=== PATIENT | female | born 1950 | race Caucasian/White ===

== ENCOUNTER 2022-04-23 10:41 | Observation (INO) ==
[2022-04-23] MEDS ORDERED: ASPIRIN CHEW 324 MG PO STA (11:23)
--- NOTE | 2022-04-23 11:27 | Emergency Department Note ---
Impression & Plan Chest pain, Chest pain, exertional ED Provider Note INFORMANT: Patient ED PROVIDER(S): Chano Harris DO CHIEF COMPLAINT: Chest pain PLAN: Disposition: admission Condition: Good Outpatient prescription management: none Referral: I spoke with the hospitalist, who will see the patient for admiss ion/observation and further evaluation and consultation. MEDICAL DECISION MAKING: This is a 71-year-old female who presents to the ED with a chief complaint is discomfort. The patient states that she went to her PCP this morning to have a preop visit for a total hip replacement that is scheduled for May. She saw Dr. Chacon in the office. The patient states that she told Dr. Chacon about what happened yesterday and was referred here for further evaluation. She states that she had some chest discomfort/tightness that started around 2:30 PM yesterday. She states that she was doing minimal activity at the time. It radiated to the jaw, neck and left arm. It lasted for about 45 minutes with some associated diaphoresis and nausea and belching. She thought that it might have been related to anxiety, which she has a history of but she states that she has never had a panic attack. She states that her bra was soaking wet. She did have associated shortness of breath as well. The patient states that when walking to the doctor's office this morning she again had some discomfort in her chest and shortness of breath. She overall states that she has not been feeling well since this event yesterday. History of hypertension, high cholesterol and COPD. Her vital signs are normal. Her physical exam was unremarkable. She is in no distress and denies having chest pain now. Lead EKG shows a normal sinus rhythm at a rate of 60, low voltage. She does have ST depressions in the lateral leads. Unsure if this is chronic or acute. CBC was unremarkable. Chest x-ray is negative for acute disease. BUN is 37 and creatinine is 1.22. No significant anemia or electrolyte disturbance. Lipase was negative. COVID test was negative. The patient was told the results. She was treated with aspirin p.o. here. Because of her symptoms and risk factors, she will be seen by the hospitalist for further evaluation and care. I did speak with him about her condition and test results Triage Nursing notes reviewed. Vital Signs: reviewed Prior /Outside records reviewed: none Differential diagnosis: The differential that was considered includes acute myocardial infarction, acute coronary syndrome, myocarditis, pericarditis, thoracic aortic dissection, pulmonary embolism, pneumonia, pneumothorax, pancreatitis, shingles Diagnostics, as interpreted by me: 12 lead ECG: Normal sinus rhythm at a rate of 60. Low voltage. ST depressions laterally. No PVCs. Cardiac Monitoring: [none] Medical decision rules: HEART SCORE: Moderate Imaging studies: No acute disease. No pneumothorax or pneumonia. Procedures: none. Critical care: none. HPI: See MDM above. PAST MEDICAL HISTORY: See Below PAST SURGICAL HISTORY: See Below SOCIAL HISTORY: See Below HOME MEDICATIONS: See Below ALLERGIES: See Below VITALS: See Below PHYSICAL EXAMINATION: CONSTITUTIONAL/VITAL SIGNS: Reviewed GENERAL: Non-toxic in appearance. INTEGUMENTARY: Warm, dry, and [place]. HEAD: Normocephalic. EYES: without scleral icterus. ENT/OROPHARYNX: clear and moist. RESPIRATORY: No increased work of breathing. Lungs clear. CARDIOVASCULAR: Regular rate. Regular rhythm. GI/ABDOMEN: Soft and nontender. . EXTREMITIES: Normal NEUROLOGICAL: Intact without focal deficits. PSYCHIATRIC: Normal affect. MUSCULOSKELETAL: Normal. TRIAGE NURSING DOCUMENTATION REVIEWED. Past Med/Surg History Medical History (Updated 04/23/22 @ 12:47 by Chano Harris DO) Anxiety and depression Asthma well controlled w/ montelukast , no inhalers Bipolar disorder COPD (chronic obstructive pulmonary disease) GERD (gastroesophageal reflux disease) Hyperlipidemia Hypertension Hypothyroidism OCD (obsessive compulsive disorder) Surgical History (Updated 04/21/22 @ 13:33 by Sara Velázquez) History of bilateral knee replacement History of esophagogastroduodenoscopy (EGD) History of open reduction and internal fixation (ORIF) procedure Right femur History of removal of retained hardware R/t femur ORIF History of right hip replacement Hx of colonoscopy Hx of hysterectomy Hx of tonsillectomy Nausea and vomiting after administration of anesthetic agent Family History Other Hx of cardiac disorder Social History Smoking Status: Never smoker Second Hand Exposure: No; Hx Alcohol Use: No Hx Substance Use: No Preferred Language: Yoruba Communication Ability: Effective Forensic Toxicologist Required: No Beliefs That Will Affect Care: None Current Living Situation: Spouse Feels Safe at Home: Yes Assistive Devices: Glasses Allergies Allergies Allergy/AdvReac Type Severity Reaction Status Date / Time codeine AdvReac Mild Vomiting Verified 04/15/22 10:06 Home Meds Home Medications Medication Instructions Recorded Confirmed acetaminophen 500 mg tablet 1,000 mg PO BID PRN Pain 04/15/22 04/15/22 ascorbic acid (vitamin C) 1,000 mg 1,000 mg PO BID 04/15/22 04/15/22 tablet,extended release (Vitamin C ER) atorvastatin 40 mg tablet (Lipitor) 40 mg PO PM 04/15/22 04/15/22 buspirone 15 mg tablet 30 mg PO QPM 04/15/22 04/15/22 buspirone 15 mg tablet 60 mg PO QAM 04/15/22 04/15/22 lamotrigine 200 mg tablet 200 mg PO BID 04/15/22 04/15/22 levothyroxine 50 mcg tablet 50 mcg PO QAM 04/15/22 04/15/22 lisinopril 10 mg tablet 10 mg PO QAM 04/15/22 04/15/22 montelukast 10 mg tablet 10 mg PO QAM 04/15/22 04/15/22 multivitamin 1 tab PO QAM 04/15/22 04/15/22 omeprazole 20 mg capsule,delayed 20 mg PO BID 04/15/22 04/15/22 release risperidone 3 mg tablet 3 mg PO HS 04/15/22 04/15/22 topiramate 100 mg tablet 300 mg PO HS 04/15/22 04/15/22 valacyclovir 500 mg tablet 500 mg PO BID 04/15/22 04/15/22 venlafaxine 150 mg 300 mg PO QAM 04/15/22 04/15/22 capsule,extended release 24 hr Results & Data (ED) Vital Signs Vital Signs - 24 hr 04/23/22 10:41 04/23/22 11:37 04/23/22 12:00 Temperature 36.6 C Temperature Source Temporal Artery Scan Pulse Rate 67 Pulse Rate [Apical] 69 60 Pulse Rhythm [Apical] Regular Regular Pulse Strength [Apical] Normal Respiratory Rate 20 17 18 Respiratory Effort / Characteristics Non-Labored Spontaneous Non-Labored Spontaneous Non-Labored Spontaneous Respiratory Depth Normal Normal Normal Respiratory Pattern Regular Blood Pressure 132/81 Blood Pressure [Left Arm] 124/63 132/72 Blood Pressure Mean 98 Blood Pressure Mean [Left Arm] 83 92 Pulse Oximetry 98 98 95 Oxygen Delivery Method Room Air Room Air Room Air Sepsis Recent Fever Within 48 Hours No Sepsis New/Unexplained Change in Mental Status No Sepsis Action Taken by Nursing No Action Required Laboratory Data 04/23/22 11:13 04/23/22 11:13 Lab Results 04/23/22 04/23/22 04/23/22 Range/Units 11:13 11:13 11:13 WBC 4.68 L (4.8-10.8) K/ul RBC 3.42 L (3.93-5.22) M/uL Hgb 11.2 L (12.0-16.0) g/dl Hct 35.0 (34.1-44.9) % MCV 102.3 H (80.0-100.0) fL MCH 32.7 (25.0-34.0) pg MCHC 32.0 (32.0-36.0) g/dL RDW Std Deviation 53.5 H (36.4-46.3) fL RDW Coeff of Diane 14.3 (11.5-14.5) % Plt Count 152 (130-400) K/uL MPV 10.6 (9.4-12.3) fL Immature Gran % (Auto) 0.4 % Neut % (Auto) 65.7 % Lymph % (Auto) 18.2 % Sanders % (Auto) 9.2 % Eos % (Auto) 5.6 % Baso % (Auto) 0.9 % Neut # (Auto) 3.08 (1.4-6.5) K/uL Lymph # (Auto) 0.85 L (1.2-3.4) K/uL Sanders # (Auto) 0.43 (0.24-0.82) K/uL Eos # (Auto) 0.26 (0-0.50) K/uL Baso # (Auto) 0.04 (0-0.2) K/uL Immature Gran # (Auto) 0.02 (0.00-0.02) K/uL PT 10.3 (9.0-12.0) Seconds INR 1.0 (0.9-1.1) APTT 24.8 (21.0-31.0) Seconds PTT Ratio 0.9 Sodium 140 (136-145) mmol/L Potassium 4.3 (3.5-5.1) mmol/L Chloride 111 H (98-107) mmol/L Carbon Dioxide 24 (21-32) mmol/L Anion Gap 5 (3-11) BUN 37 H (6-23) mg/dl Creatinine 1.22 H (0.6-1.2) mg/dl Est Cr Clr Drug Dosing 42.9 ml/min Est GFR ( Amer) 50.9 ml/min Est GFR (Non-Af Amer) 43.9 ml/min BUN/Creatinine Ratio 30.3 H (10-20) Glucose 80 (70-99(Fasting)) mg/dl Calcium 9.6 (8.5-10.1) mg/dl Total Bilirubin 0.3 (0.2-1.0) mg/dl AST 20 (13-39) U/L ALT 18 (7-52) U/L Alkaline Phosphatase 87 (34-104) U/L Troponin I High Sens 6.4 (0-14) pg/ml Total Protein 7.2 (6.0-8.3) gm/dl Albumin 4.3 (3.4-5.0) gm/dl Globulin 2.9 (2.5-4.0) gm/dl Albumin/Globulin Ratio 1.5 (0.9-2) Lipase 44 (11-82) U/L SARS-CoV-2, RNA, NAAT (NEGATIVE) 04/23/22 Range/Units 11:15 WBC (4.8-10.8) K/ul RBC (3.93-5.22) M/uL Hgb (12.0-16.0) g/dl Hct (34.1-44.9) % MCV (80.0-100.0) fL MCH (25.0-34.0) pg MCHC (32.0-36.0) g/dL RDW Std Deviation (36.4-46.3) fL RDW Coeff of Diane (11.5-14.5) % Plt Count (130-400) K/uL MPV (9.4-12.3) fL Immature Gran % (Auto) % Neut % (Auto) % Lymph % (Auto) % Sanders % (Auto) % Eos % (Auto) % Baso % (Auto) % Neut # (Auto) (1.4-6.5) K/uL Lymph # (Auto) (1.2-3.4) K/uL Sanders # (Auto) (0.24-0.82) K/uL Eos # (Auto) (0-0.50) K/uL Baso # (Auto) (0-0.2) K/uL Immature Gran # (Auto) (0.00-0.02) K/uL PT (9.0-12.0) Seconds INR (0.9-1.1) APTT (21.0-31.0) Seconds PTT Ratio Sodium (136-145) mmol/L Potassium (3.5-5.1) mmol/L Chloride (98-107) mmol/L Carbon Dioxide (21-32) mmol/L Anion Gap (3-11) BUN (6-23) mg/dl Creatinine (0.6-1.2) mg/dl Est Cr Clr Drug Dosing ml/min Est GFR ( Amer) ml/min Est GFR (Non-Af Amer) ml/min BUN/Creatinine Ratio (10-20) Glucose (70-99(Fasting)) mg/dl Calcium (8.5-10.1) mg/dl Total Bilirubin (0.2-1.0) mg/dl AST (13-39) U/L ALT (7-52) U/L Alkaline Phosphatase (34-104) U/L Troponin I High Sens (0-14) pg/ml Total Protein (6.0-8.3) gm/dl Albumin (3.4-5.0) gm/dl Globulin (2.5-4.0) gm/dl Albumin/Globulin Ratio (0.9-2) Lipase (11-82) U/L SARS-CoV-2, RNA, NAAT NEGATIVE (NEGATIVE) Administered Medications Discontinued Medications Aspirin (Aspirin Chew 324 Mg) 324 mg PO NOW STA Stop: 04/23/22 11:24 Last Admin: 04/23/22 11:29 Dose: 324 mg Documented By: NA Imaging Data Radiologist's Impression: Chest X-Ray 04/23/22 11:23 SINGLE VIEW CHEST CLINICAL HISTORY: Atypical chest pain FINDINGS: An AP, portable, upright chest radiograph is compared to study dated 01/22/2022. The heart is enlarged noting atherosclerotic calcification of the thoracic aorta. The pulmonary vasculature is noncongested. Chronic interstitial thickening is somewhat previous. The lungs and pleural spaces are clear noting bibasilar scarring/atelectasis. No pneumothorax is seen. The skeletal structures are osteopenic. The bony thorax is grossly intact. IMPRESSION: Cardiomegaly with no acute cardiopulmonary abnormality identified. ACT 112: Negative or not required by law. Electronically signed by: Phill España M.D. 04/23/2022 11:59 AM Discharge Plan Visit Data Chief Complaint: Chest Pain Stated Complaint: HEART ISSUES, SUSPECTED HEART ATTACK ED Provider: Chano Harris Discharge Problem: Chest pain, Chest pain, exertional Patient Disposition: Being Evaluated by Hospitalist Forms Stand Alone Forms: My [facility] Prescriptions Prescriptions: No Action atorvastatin [Lipitor] 40 mg Tablet 40 mg PO PM lamotrigine 200 mg Tablet 200 mg PO BID venlafaxine 150 mg Capsule,Extended Release 24hr 300 mg PO QAM valacyclovir 500 mg Tablet 500 mg PO BID acetaminophen [Tylenol Ex Str Arthritis Pain] 500 mg Tablet 1,000 mg PO BID PRN (Reason: Pain) risperidone 3 mg Tablet 3 mg PO HS levothyroxine 50 mcg Tablet 50 mcg PO QAM lisinopril 10 mg Tablet 10 mg PO QAM omeprazole 20 mg Capsule,Delayed Release(Dr/Ec) 20 mg PO BID montelukast 10 mg Tablet 10 mg PO QAM topiramate 100 mg Tablet 300 mg PO HS buspirone [BuSpar] 15 mg Tablet 60 mg PO QAM buspirone [BuSpar] 15 mg Tablet 30 mg PO QPM multivitamin Tablet 1 tab PO QAM Vitamin C 1,000 mg Tablet Extended Release 1,000 mg PO BID Referrals Referrals: Glen Floyd MD [Primary Care Provider] -
[2022-04-23 11:38] LABS: Basophils # (auto) 0.04 K/uL (0-0.2); Basophils % (auto) 0.9 %; Eosinophils # (auto) 0.26 K/uL (0-0.50); Eosinophils % (auto) 5.6 %; Hemoglobin 11.2 g/dl (12.0-16.0); Immature Granulocytes # (auto) 0.02 K/uL (0.00-0.02); Immature Granulocytes % (auto) 0.4 %; Lymphocytes # (auto) 0.85 K/uL (1.2-3.4); Lymphocytes % (auto) 18.2 %; Mean Corpuscular Hemoglobin 32.7 pg (25.0-34.0); Mean Corpuscular Volume 102.3 fL (80.0-100.0); Mean Platelet Volume 10.6 fL (9.4-12.3); Monocytes # (auto) 0.43 K/uL (0.24-0.82); Monocytes % (auto) 9.2 %; Neutrophils # (auto) 3.08 K/uL (1.4-6.5); Neutrophils % (auto) 65.7 %; Platelet Count 152 K/uL (130-400); RDW Coefficient of Variation 14.3 % (11.5-14.5); RDW Standard Deviation 53.5 fL (36.4-46.3); Red Blood Count 3.42 M/uL (3.93-5.22); White Blood Count 4.68 K/ul (4.8-10.8)
[2022-04-23 11:51] LABS: Partial Thromboplastin Ratio 0.9; Partial Thromboplastin Time 24.8 Seconds (21.0-31.0); Prothrombin Time 10.3 Seconds (9.0-12.0)
--- NOTE | 2022-04-23 12:00 | XRay Report ---
SINGLE VIEW CHEST CLINICAL HISTORY: Atypical chest pain FINDINGS: An AP, portable, upright chest radiograph is compared to study dated 01/22/2022. The heart is enlarged noting atherosclerotic calcification of the thoracic aorta. The pulmonary vasculature is noncongested. Chronic interstitial thickening is somewhat previous. The lungs and pleural spaces are clear noting bibasilar scarring/atelectasis. No pneumothorax is seen. The skeletal structures are ost eopenic. The bony thorax is grossly intact. IMPRESSION: Cardiomegaly with no acute cardiopulmonary abnormality identified. ACT 112: Negative or not required by law. Electronically signed by: Phill España M.D. 04/23/2022 11:59 AM
[2022-04-23 12:04] LABS: Albumin Globulin Ratio 1.5 (0.9-2); Albumin Level 4.3 gm/dl (3.4-5.0); BUN Creatinine Ratio 30.3 (10-20); Bilirubin,Total 0.3 mg/dl (0.2-1.0); Calcium 9.6 mg/dl (8.5-10.1); Creatinine Clr Calc Pharmacy 42.9 ml/min; Est GFR (African American) 50.9 ml/min; Est GFR (Non-African American) 43.9 ml/min; Globulin 2.9 gm/dl (2.5-4.0); Potassium 4.3 mmol/L (3.5-5.1); Total Protein 7.2 gm/dl (6.0-8.3); Troponin I High Sensitivity 6.4 pg/ml (0-14)
--- NOTE | 2022-04-23 12:52 | History & Physical Report ---
Date of Service April 23, 2022 Assessment & Plan (1) Chest pain: Plan: - 45 minutes of chest pain/diaphoresis/SOB yesterday with light exertion at home, self resolved followed by exertional chest pain today while walking into PCP office. - Initial trop 6.4,2 hour repeat 6.2. - Patient currently is chest pain free, EKG does have some lateral ST depressions which appear new from EKG in 2014. - No history of CAD but risk factors include age, HTN, HLD, overweight. - Will bring in for observation to trend troponin. - Will discuss case with cardiology. As she was attending PCP for a pre-op visit for hip replacement in May, she may benefit from exercise stress test today with potential d/c home this evening pending normal stress. (2) Hypertension: Plan: - Normotensive on admission. - Continue lisinopril. (3) Hyperlipidemia: Plan: - Continue statin. (4) Hypothyroidism: Plan: - Continue levothyroxine. - TSH pending. (5) GERD (gastroesophageal reflux disease): Plan: - Continue PPI, switch omeprazole to pantoprazole per hospital formulary. (6) Bipolar disorder: Plan: Bipolar Disorder/Anxiety/Depression - Continue Lamictal, risperidone, Topamax, BuSpar, venlafaxine. (7) Anxiety and depression: (8) Genital HSV: Plan: - Continue Valtrex, to complete 04/26. (9) Asthma: Plan: - Continue Singulair. Plan - Obs med/tele. - SCDs for VTE ppx. - Full Code. History of Present Illness Chief Complaint: chest discomfort on two separate occasions over past day Primary Care Provider: Glen Floyd MD Jody Saab is a 71-year-old female with past medical history significant for hyperlipidemia, hypertension, hypothyroidism, depression, anxiety, bipolar disorder, and asthma who is presenting today with chest pain. Yesterday around 2:30 PM she had some central chest tightness and discomfort while doing minimal activity at home that radiated to her jaw, neck, and left arm. It lasted for about 45 minutes with some associated diaphoresis, nauseous, and dry heaving. She was so diaphoretic that she did sweat through her clothing. Discomfort did eventually go away on its own, however walking into her doctor's appointment this morning she again had some chest discomfort with shortness of breath and has just generally felt unwell since this started yesterday. She was referred to the ED for further evaluation. She was seeing her PCP today for a pre-op appt today for hip replacement in May. Upon presentation, vital signs within normal limits and stable. Labs notable for mild leukopenia and anemia, unsure of her baseline. Creatinine 1.22, unsure of baseline. Troponin 6.4. 2 hour repeat 6.2 Her EKG shows normal sinus rhythm with some ST depressions in the lateral leads, when compared to EKG from 2013, they do appear new. She had an exercise stress echo in 2018 due to an arrhythmia which was limited due to shortness of breath and fatigue, however was clinically negative for angina, EKG technically indeterminate due to suboptimal heart rate but there were no ischemic changes noted or significant arrhythmias. Allergies Allergy/AdvReac Type Severity Reaction Status Date / Time codeine AdvReac Intermediate Vomiting Verified 04/23/22 16:02 Home Medications Medication Instructions Recorded Confirmed Type acetaminophen 500 mg tablet 1,000 mg PO BID PRN Pain 04/15/22 04/23/22 History ascorbic acid (vitamin C) 1,000 mg 1,000 mg PO BID 04/15/22 04/23/22 History tablet,extended release (Vitamin C ER) atorvastatin 40 mg tablet (Lipitor) 40 mg PO PM 04/15/22 04/23/22 History buspirone 15 mg tablet 15 mg PO QAM 04/15/22 04/23/22 History lamotrigine 200 mg tablet 200 mg PO BID 04/15/22 04/23/22 History levothyroxine 50 mcg tablet 50 mcg PO QAM 04/15/22 04/23/22 History lisinopril 10 mg tablet 10 mg PO QAM 04/15/22 04/23/22 History montelukast 10 mg tablet 10 mg PO QAM 04/15/22 04/23/22 History multivitamin 1 tab PO QAM 04/15/22 04/23/22 History omeprazole 20 mg capsule,delayed 20 mg PO BID 04/15/22 04/23/22 History release risperidone 3 mg tablet 3 mg PO HS 04/15/22 04/23/22 History topiramate 100 mg tablet 300 mg PO HS 04/15/22 04/23/22 History valacyclovir 500 mg tablet 500 mg PO BID 04/15/22 04/23/22 History venlafaxine 150 mg 300 mg PO QAM 04/15/22 04/23/22 History capsule,extended release 24 hr Past Med/Surg History Medical History (Updated 04/23/22 @ 14:23 by Paris Koch PA-C) Anxiety and depression Asthma well controlled w/ montelukast , no inhalers Bipolar disorder COPD (chronic obstructive pulmonary disease) GERD (gastroesophageal reflux disease) Hyperlipidemia Hypertension Hypothyroidism OCD (obsessive compulsive disorder) Surgical History (Updated 04/21/22 @ 13:33 by Sara Velázquez) History of bilateral knee replacement History of esophagogastroduodenoscopy (EGD) History of open reduction and internal fixation (ORIF) procedure Right femur History of removal of retained hardware R/t femur ORIF History of right hip replacement Hx of colonoscopy Hx of hysterectomy Hx of tonsillectomy Nausea and vomiting after administration of anesthetic agent Family History Other Hx of cardiac disorder Social History Smoking Status: Never smoker Second Hand Exposure: No; Hx Alcohol Use: No Hx Substance Use: No Preferred Language: Luxembourger Communication Ability: Effective Clinical Orthoptist Required: No Beliefs That Will Affect Care: None Current Living Situation: Spouse Feels Safe at Home: Yes Assistive Devices: Glasses Review of Systems Review of Systems: Constitutional: No fever/chills, weakness, fatigue, myalgias, anorexia, night sweats Eyes: No diplopia, no worsening or blurred vision ENT: normal hearing, no trouble swallowing Respiratory: No cough, sputum, dyspnea at rest or on exertion Cardiovascular: No chest pain, tightness or palpitations Abdomen: No pain, nausea, vomiting, diarrhea or constipation : Denies dysuria, hematuria, increased urgency/frequency, urinary retention Musculoskeletal: No joint pain, calf pain, swelling Neurologic: No weakness, numbness/tingling, or balance problems Psychiatric: No anxiety or depression Skin: No rash or itch Physical Exam Physical Exam: General: awake, alert, no apparent distress Head: Normocephalic, atraumatic ENT: PERRL, EOMI, no pharyngeal exudate, mucous membranes moist Chest: Clear to auscultation, on room air, no adventitious breath sounds Cardiac: Regular rate and rhythm, no murmur, no JVD, normal peripheral pulses, good capillary refill Abdominal: NABS x 4 quadrants, soft, nontender to palpation, no rebound, guarding or tenderness Extremities: Normal inspection, no peripheral edema or erythema, calfs nontender to palpation Psych: Normal mood and affect Neuro: AAO x 3, strength intact bilaterally and rated 5/5, no motor deficits, speech is clear, no peripheral sensory deficits Skin: no rash or erythema Results & Data Results & Data ([facility]) Vital Signs (Past 12 Hours) Vital Signs Temp Pulse Pulse Resp BP BP Pulse Ox 04/23/22 12:00 60 18 132/72 95 04/23/22 11:37 69 17 124/63 98 04/23/22 10:41 36.6 C 67 20 132/81 98 O2 Del Method 04/23/22 12:00 Room Air 04/23/22 11:37 Room Air 04/23/22 10:41 Room Air Laboratory Results Abnormal lab results 04/23/22 04/23/22 Range/Units 11:13 11:13 WBC 4.68 L (4.8-10.8) K/ul RBC 3.42 L (3.93-5.22) M/uL Hgb 11.2 L (12.0-16.0) g/dl MCV 102.3 H (80.0-100.0) fL RDW Std Deviation 53.5 H (36.4-46.3) fL Lymph # (Auto) 0.85 L (1.2-3.4) K/uL Chloride 111 H (98-107) mmol/L BUN 37 H (6-23) mg/dl Creatinine 1.22 H (0.6-1.2) mg/dl BUN/Creatinine Ratio 30.3 H (10-20) Diagnostic Findings Chest X-Ray 04/23/22 11:23 SINGLE VIEW CHEST CLINICAL HISTORY: Atypical chest pain FINDINGS: An AP, portable, upright chest radiograph is compared to study dated 01/22/2022. The heart is enlarged noting atherosclerotic calcification of the thoracic aorta. The pulmonary vasculature is noncongested. Chronic interstitial thickening is somewhat previous. The lungs and pleural spaces are clear noting bibasilar scarring/atelectasis. No pneumothorax is seen. The skeletal structures are osteopenic. The bony thorax is grossly intact. IMPRESSION: Cardiomegaly with no acute cardiopulmonary abnormality identified. ACT 112: Negative or not required by law. Electronically signed by: Phill España M.D. 04/23/2022 11:59 AM Code Status & VTE Plan Code Status Full Code. Supervising Physician Co-Signing Physician Notes Patient seen and examined, chart reviewed, case discussed with Paris Koch, LUPE and I agree with the assessment and plan as above except as otherwise noted.Labs and images reviewed 71-year-old female w/ hx of bipolar depressive disorder, gerd, htn, hypothyroidism who presented for evaluation of chest pain day prior to and day of admission. Pt was seen by PCP for preop for total hip replacement next month. Was seen for preoperative evaluation during which point she reported chest pain yesterday afternoon with minimal exertion which radiated to jaw, neck, and arm and lasted about 45 minutes with some sweating and nausea. Hx of normal stress test in 2018. Prior to yesterday denies last chest pain was 2 years ago, non between 2 years ago and yesterday. No episodes of shortness of breath, but does endorses anxiety. Had pain this morning with resolved prior to arrival in ER, no pain at admitting assessment. +CTAB, rrr +sm, ext warm/dry and without edema. No JVD. See same-day discharge attending attestation for additional details, patient did undergo a stress test which was normal was discharged to outpatient follow-up. Total time spent was approximately 30 minutes on initial chart review/prep, and 15 minutes in discussion of case with Paris Koch following stress test. PG Care Time/CCT Total # of Minutes Spent Total Time Spent with Patient: Total time spent is greater than 50% in coordination of care (as documented) at patient's floor/unit and/or counseling patient: Coding Level of Care Code 84842 INT INP/OBS CARE 2/55MIN Diagnoses Chest pain R07.9 Hypertension I10 Hyperlipidemia E78.5 Hypothyroidism E03.9 GERD (gastroesophageal reflux disease) K21.9 Bipolar disorder F31.9 Anxiety and depression F41.9; F32.A Genital HSV A60.00 Asthma J45.909
[2022-04-23] MEDS ORDERED: METOPROLOL TARTRATE 1 MG/ML VIAL IV ONE (14:44)
[2022-04-23] MEDS ORDERED: ATROPINE SULFATE 0.1 MG/ML 10ML SYR IV ONE (14:44)
[2022-04-23] MEDS ORDERED: DOBUTamine HCL 12.5 MG/ML 20 ML VIAL IV ONE (14:44)
[2022-04-23] MEDS ORDERED: NITROGLYCERIN SL 0.4 MG/TAB TAB ONE (14:45)
[2022-04-23] MEDS ORDERED: ONDANSETRON INJ 2 MG/ML 2 ML VIAL IV PRN (16:14)
[2022-04-23] MEDS ORDERED: ACETAMINOPHEN 500 MG TAB PO PRN (16:14)
[2022-04-23] MEDS ORDERED: POLYETHYLENE (MIRALAX) 17 GM PACK PO PRN (16:14)
--- NOTE | 2022-04-23 16:21 | XCELERA ---
[id number]
--- NOTE | 2022-04-23 17:57 | Discharge Summary ---
Date of Service April 23, 2022 Admission HPI Per Admitting Provider Jody Saab is a 71-year-old female with past medical history significant for hyperlipidemia, hypertension, hypothyroidism, depression, anxiety, bipolar disorder, and asthma who is presenting today with chest pain. Yesterday around 2:30 PM she had some central chest tightness and discomfort while doing minimal activity at home that radiated to her jaw, neck, and left arm. It lasted for about 45 minutes with some associated diaphoresis, nauseous, and dry heaving. She was so diaphoretic that she did sweat through her clothing. Discomfort did eventually go away on its own, however walking into her doctor's appointment this morning she again had some chest discomfort with shortness of breath and has just generally felt unwell since this started yesterday. She was referred to the ED for further evaluation. She was seeing her PCP today for a pre-op appt today for hip replacement in May. Upon presentation, vital signs within normal limits and stable. Labs notable for mild leukopenia and anemia, unsure of her baseline. Creatinine 1.22, unsure of baseline. Troponin 6.4. 2 hour repeat 6.2 Her EKG shows normal sinus rhythm with some ST depressions in the lateral leads, when compared to EKG from 2014, they do appear new. She had an exercise stress echo in 2018 due to an arrhythmia which was limited due to shortness of breath and fatigue, however was clinically negative for angina, EKG technically indeterminate due to suboptimal heart rate but there were no ischemic changes noted or significant arrhythmias. Admission Exam Per Admitting Provider General: awake, alert, no apparent distress Head: Normocephalic, atraumatic ENT: PERRL, EOMI, no pharyngeal exudate, mucous membranes moist Chest: Clear to auscultation, on room air, no adventitious breath sounds Cardiac: Regular rate and rhythm, no murmur, no JVD, normal peripheral pulses, good capillary refill Abdominal: NABS x 4 quadrants, soft, nontender to palpation, no rebound, guarding or tenderness Extremities: Normal inspection, no peripheral edema or erythema, calfs nontender to palpation Psych: Normal mood and affect Neuro: AAO x 3, strength intact bilaterally and rated 5/5, no motor deficits, speech is clear, no peripheral sensory deficits Skin: no rash or erythema Principal Diagnosis non cardiac chest pain Discharge Exam General: awake, alert, no apparent distress Head: Normocephalic, atraumatic ENT: PERRL, EOMI, no pharyngeal exudate, mucous membranes moist Chest: Clear to auscultation, on room air, no adventitious breath sounds Cardiac: Regular rate and rhythm, no murmur, no JVD, normal peripheral pulses, good capillary refill Abdominal: NABS x 4 quadrants, soft, nontender to palpation, no rebound, guarding or tenderness Extremities: Normal inspection, no peripheral edema or erythema, calfs nontender to palpation Psych: Normal mood and affect Neuro: AAO x 3, strength intact bilaterally and rated 5/5, no motor deficits, speech is clear, no peripheral sensory deficits Skin: no rash or erythema Discharge Data Allergies Allergy/AdvReac Type Severity Reaction Status Date / Time codeine AdvReac Intermediate Vomiting Verified 04/23/22 16:02 Consultations 04/23/22 12:42 ED Decision to Admit Stat Hospital Course (1) Chest pain: - 45 minutes of chest pain/diaphoresis/SOB yesterday with light exertion at home, self resolved followed by exertional chest pain today while walking into PCP office. - Initial trop 6.4, 2 hour repeat 6.2. - Patient currently is chest pain free, EKG does have some lateral ST depressions which appear new from EKG in 2014. - No history of CAD but risk factors include age, HTN, HLD, overweight. - Initial trop 6.4, 2 hour repeat 6.2. - Dobutamine stress echo: negative dobutamine stress echo for ischemia, appropriate BP response, no definite arryhtmia, no chest pain reported - EF 60-65%, no LVH, normal LVSF, normal RSVP. (2) Hypertension: - Normotensive on admission. - Continue lisinopril. (3) Hyperlipidemia: - Continue statin. (4) Hypothyroidism: - Continue levothyroxine. - TSH pending. (5) GERD (gastroesophageal reflux disease): - Continue PPI, switch omeprazole to pantoprazole per hospital formulary. (6) Bipolar disorder: Bipolar Disorder/Anxiety/Depression - Continue Lamictal, risperidone, Topamax, BuSpar, venlafaxine. (7) Anxiety and depression: (8) Genital HSV: - Continue Valtrex, to complete 04/26. (9) Asthma: - Continue Singulair. Plan - Obs med/tele. - SCDs for VTE ppx. - Full Code. Total Time Total Time Spent Total Time Spent (In Minutes): 30 Discharge Plan Discharge Items Patient Disposition: Home - Self-Care Reason For Visit: chest pain r/o Discharge Diagnosis: non-cardiac chest pain Activity: Resume your previous activity Non-emergency contact: Primary Care Provider Call non-emergency contact if: you have any medication questions and your pain is unusual for you Follow-up/Referrals: Glen Floyd MD [Primary Care Provider] - Diet: Heart Healthy Addtl Attending Provider Instructions: Mrs. Saab, Harris were observed in the [facility] on 04/23 for chest pain over the past two days. Your heart markers (troponin) were normal but your EKG had some changes that could be concerning for heart injury. You had a stress test done which did not show and evidence for heart injury. There was no abnormal heart rhythm observed, your blood pressure was okay, and you did not experience any chest pain during this test. Therefore, we can conclude that your chest pain was not related to your heart. It may be that your chest pain was related to your GERD or anxiety. I would recommend following up with your PCP this week to discuss your emergency room visit and tests done, as well as for completion of pre-operation evaluation for your upcoming hip surgery. It was a pleasure taking care of you. Pending Studies at Discharge: No Stand-Alone Forms: [facility], Smoking Cessation Medications and DC Order Prescriptions: Continued atorvastatin [Lipitor] 40 mg Tablet 40 mg PO PM lamotrigine 200 mg Tablet 200 mg PO BID venlafaxine 150 mg Capsule,Extended Release 24hr 300 mg PO QAM valacyclovir 500 mg Tablet 500 mg PO BID acetaminophen 500 mg Tablet 1,000 mg PO BID PRN (Reason: Pain) risperidone 3 mg Tablet 3 mg PO HS levothyroxine 50 mcg Tablet 50 mcg PO QAM lisinopril 10 mg Tablet 10 mg PO QAM omeprazole 20 mg Capsule,Delayed Release(Dr/Ec) 20 mg PO BID montelukast 10 mg Tablet 10 mg PO QAM topiramate 100 mg Tablet 300 mg PO HS buspirone 15 mg Tablet 15 mg PO QAM Rx Instructions: 15 MG; TAKES 60 MG QAM, THEN 30 MG QPM. multivitamin Tablet 1 tab PO QAM Vitamin C 1,000 mg Tablet Extended Release 1,000 mg PO BID Discharge Orders: Discharge Order (Routine); Ordered 04/23/22 Ordered By: Paris Koch Admission Data Admit Date/Time: 04/23/22 12:57 Attending Provider: Craig Kinney Admit Provider: Craig Kinney Primary Care Provider: Glen Floyd Other Providers: Craig Kinney Other Interventions: Discharge Summary Assessment (RN) Last Done: 04/23/22 17:27 Supervising Physician Co-Signing Physician Notes Patient seen and examined, chart reviewed, case discussed with Paris Koch, LUPE and I agree with the assessment and plan as above except as otherwise noted.Labs and images reviewed 71-year-old female w/ hx of bipolar depressive disorder, gerd, htn, hypothyroidism who presented for evaluation of chest pain day prior to and day of admission. Pt was seen by PCP for preop for total hip replacement next month. Was seen for preoperative evaluation during which point she reported chest pain yesterday afternoon with minimal exertion which radiated to jaw, neck, and arm and lasted about 45 minutes with some sweating and nausea. Hx of normal stress test in 2018. Prior to yesterday denies last chest pain was 2 years ago, non between 2 years ago and yesterday. No episodes of shortness of breath, but does endorses anxiety. Had pain this morning with resolved prior to arrival in ER, no pain at admitting assessment. +CTAB, rrr +sm, ext warm/dry and without edema. No JVD. Chest pain: Patient seen and evaluated by cardiology, was able to have stress test day of admission. Stress test did not show any evidence of inducible ischemia, okay for discharge home. Patient discharged to outpatient follow-up, agree with recommendations above Hx of Bipolar Depression/Anxiety: On buspar, venlavaxine Hx of of Genital HSV: Continue valacyclovir Coding Level of Care Code INP/OBS EV SAME DAY LV 1,45MIN Diagnoses Chest pain R07.9 Hypertension I10 Hyperlipidemia E78.5 Hypothyroidism E03.9 GERD (gastroesophageal reflux disease) K21.9 Bipolar disorder F31.9 Anxiety and depression F41.9; F32.A Genital HSV A60.00 Asthma J45.909
[2022-04-23] MEDS ORDERED: ATORVASTATIN 40 MG TAB PO SCH (21:00)
[2022-04-23] MEDS ORDERED: ASCORBIC ACID 500 MG TAB PO SCH (21:00)
[2022-04-23] MEDS ORDERED: TOPIRAMATE 100 MG TAB PO SCH (21:00)
[2022-04-23] MEDS ORDERED: valACYclovir HCL 500 MG TABLET PO SCH (21:00)
[2022-04-23] MEDS ORDERED: lamoTRIgine 100 MG TAB PO SCH (21:00)
[2022-04-23] MEDS ORDERED: risperiDONE 3 MG TABLET PO SCH (21:00)
[2022-04-23] MEDS ORDERED: PANTOprazole 40 MG TAB PO SCH (21:00)
[2022-04-23] MEDS ORDERED: busPIRone 15 MG TAB PO SCH (21:00)
[2022-04-24] MEDS ORDERED: LEVOTHYROXINE SODIUM 50 MCG TABLET PO SCH (06:30)
[2022-04-24] MEDS ORDERED: lisinopril 10 MG TAB PO SCH (09:00)
[2022-04-24] MEDS ORDERED: VENLAFAXINE HCL XR 150 MG CAPXR PO SCH (09:00)
[2022-04-24] MEDS ORDERED: MONTELUKAST SODIUM 10 MG TABLET PO SCH (09:00)
[2022-04-24] MEDS ORDERED: MULTIVITAMIN TAB PO SCH (09:00)
[2022-04-24] MEDS ORDERED: busPIRone 15 MG TAB PO SCH (09:00)
--- NOTE | 2022-04-25 05:35 | Electrocardiogram Report ---
Test Reason : Blood Pressure : / mmHG Vent. Rate : 060 BPM Atrial Rate : 060 BPM P-R Int : 160 ms QRS Dur : 090 ms QT Int : 396 ms P-R-T Axes : 114 -06 020 degrees QTc Int : 396 ms Poor data quality, interpretation may be adversely affected Normal sinus rhythm Low voltage QRS Cannot rule out Inferior infarct , age undetermined Cannot rule out Anterior infarct , age undetermined Nonspecific ST and T wave abnormality Abnormal ECG No previous ECGs available Confirmed by Terrell Quiñonez ([id number]) on 04/25/2022 5:35:11 AM Referred By: Confirmed By:Terrell Quiñonez
--- NOTE | 2022-04-25 06:07 | Electrocardiogram Report ---
Test Reason : Blood Pressure : / mmHG Vent. Rate : 059 BPM Atrial Rate : 059 BPM P-R Int : 172 ms QRS Dur : 106 ms QT Int : 460 ms P-R-T Axes : 076 068 071 degrees QTc Int : 455 ms Sinus bradycardia with sinus arrhythmia Low voltage QRS Nonspecific ST and T wave abnormality Abnormal ECG When compared with ECG of 23-APR-2022 11:08, Minimal criteria for Inferior infarct are no longer Present QT has lengthened Confirmed by Terrell Quiñonez ([id number]) on 04/25/2022 6:07:00 AM Referred By: REFERRED SELF Confirmed By:Terrell Quiñonez
== END 2022-04-23 17:27 | disposition home or self-care (01) ==
LOC: ED 10:41 → EDINP 10:41

== ENCOUNTER 2022-05-15 05:21 | Observation (INO) ==
--- NOTE | 2022-04-17 11:01 | PAT Medication Instructions ---
Medication Instructions Date of Service April 17, 2022 Home Medications acetaminophen 500 mg tablet 1,000 mg PO BID PRN Pain ascorbic acid (vitamin C) 1,000 mg tablet,extended release (Vitamin C ER) 1,000 mg PO BID atorvastatin 40 mg tablet (Lipitor) 40 mg PO PM buspirone 15 mg tablet 30 mg PO QPM buspirone 15 mg tablet 60 mg PO QAM lamotrigine 200 mg tablet 200 mg PO BID levothyroxine 50 mcg tablet 50 mcg PO QAM lisinopril 10 mg tablet 10 mg PO QAM montelukast 10 mg tablet 10 mg PO QAM multivitamin 1 tab PO QAM omeprazole 20 mg capsule,delayed release 20 mg PO BID risperidone 3 mg tablet 3 mg PO HS topiramate 100 mg tablet 300 mg PO HS valacyclovir 500 mg tablet 500 mg PO BID venlafaxine 150 mg capsule,extended release 24 hr 300 mg PO QAM Continue as directed valacyclovir 500 mg tablet 500 mg PO BID ASK your prescriber and surgeon risperidone 3 mg tablet 3 mg PO HS DO NOT take the morning of surgery ascorbic acid (vitamin C) 1,000 mg tablet,extended release (Vitamin C ER) 1,000 mg PO BID lisinopril 10 mg tablet 10 mg PO QAM multivitamin 1 tab PO QAM Take morning of surgery With a small sip of water, OTHERWISE NOTHING TO EAT OR DRINK AFTER MIDNIGHT: acetaminophen 500 mg tablet 1,000 mg PO BID PRN Pain (if needed) buspirone 15 mg tablet 60 mg PO QAM lamotrigine 200 mg tablet 200 mg PO BID levothyroxine 50 mcg tablet 50 mcg PO QAM montelukast 10 mg tablet 10 mg PO QAM omeprazole 20 mg capsule,delayed release 20 mg PO BID venlafaxine 150 mg capsule,extended release 24 hr 300 mg PO QAM Take evening before surgery acetaminophen 500 mg tablet 1,000 mg PO BID PRN Pain (if needed) ascorbic acid (vitamin C) 1,000 mg tablet,extended release (Vitamin C ER) 1,000 mg PO BID atorvastatin 40 mg tablet (Lipitor) 40 mg PO PM buspirone 15 mg tablet 30 mg PO QPM lamotrigine 200 mg tablet 200 mg PO BID omeprazole 20 mg capsule,delayed release 20 mg PO BID topiramate 100 mg tablet 300 mg PO HS Other Notes If you have any questions please call us at [phone] or [phone] or [phone] or [phone]
--- NOTE | 2022-05-02 15:03 | Anesthesiology Consultation ---
Date of Service May 02, 2022 Assessment & Plan (1) Encounter for pre-operative examination: - COVID screening: Per assessment on 05/02: No known COVID-19 positive contacts or current COVID-19 related symptoms. Travel screen negative. Patient vaccinated. At surgeon discretion if preop Covid testing being done. - Outpatient joint assessment: Pt currently scheduled for inpatient pathway. If surgeon requests review for outpatient joint pathway, patient is an acceptable candidate for outpatient joint program from anesthesia standpoint pending PCP preop evaluation. Awaiting surgeon-ordered PCP preop evaluation ([facility]). Chart Review Chart Review: Patient seen in Pre Admission Testing Teaching & Discussion Pre-Anesthesia Teaching/Discussion Notes: Instructed NPO after midnight before surgery,except medications with 15 cc of water. Medication instructions provided according to the PAT guidelines. History Surgery Operation Date: 05/15/22 07:00 Proposed Procedures p Left Total Hip Arthroplasty - Craig Shultz MD Height/Weight Height: 5 ft 5 in Weight: 76.3 kg Allergies Allergy/AdvReac Type Severity Reaction Status Date / Time codeine AdvReac Intermediate Vomiting Verified 04/23/22 16:02 Medications Home Medications Medication Instructions Recorded Confirmed Last Taken acetaminophen 500 mg tablet 1,000 mg PO BID PRN Pain 04/15/22 04/23/22 Unknown ascorbic acid (vitamin C) 1,000 mg 1,000 mg PO BID 04/15/22 04/23/22 04/23/22 08:00 tablet,extended release (Vitamin C ER) atorvastatin 40 mg tablet (Lipitor) 40 mg PO PM 04/15/22 04/23/22 04/22/22 buspirone 15 mg tablet 15 mg PO QAM 04/15/22 04/23/22 04/23/22 lamotrigine 200 mg tablet 200 mg PO BID 04/15/22 04/23/22 04/23/22 08:00 levothyroxine 50 mcg tablet 50 mcg PO QAM 04/15/22 04/23/22 04/23/22 lisinopril 10 mg tablet 10 mg PO QAM 04/15/22 04/23/22 04/23/22 montelukast 10 mg tablet 10 mg PO QAM 04/15/22 04/23/22 04/23/22 multivitamin 1 tab PO QAM 04/15/22 04/23/22 04/23/22 omeprazole 20 mg capsule,delayed 20 mg PO BID 04/15/22 04/23/22 04/23/22 08:00 release risperidone 3 mg tablet 3 mg PO HS 04/15/22 04/23/22 04/22/22 topiramate 100 mg tablet 300 mg PO HS 04/15/22 04/23/22 04/22/22 valacyclovir 500 mg tablet 500 mg PO BID 04/15/22 04/23/22 04/23/22 08:00 venlafaxine 150 mg 300 mg PO QAM 04/15/22 04/23/22 04/23/22 capsule,extended release 24 hr Past Medical History Medical History Anxiety and depression Asthma Bipolar disorder COPD (chronic obstructive pulmonary disease) GERD (gastroesophageal reflux disease) Hyperlipidemia Hypertension Hypothyroidism OCD (obsessive compulsive disorder) Exercise / Class Metabolic Activity II 4-5 Yardwork/Stairs/Walk up hill Past Family History Family History Other Hx of cardiac disorder Past Surgical History Surgical History History of bilateral knee replacement History of esophagogastroduodenoscopy (EGD) History of open reduction and internal fixation (ORIF) procedure Right femur History of removal of retained hardware R/t femur ORIF History of right hip replacement Hx of colonoscopy Hx of hysterectomy Hx of tonsillectomy Nausea and vomiting after administration of anesthetic agent Past Anesthesia History No Hx of Anesthesia Complications (except PONV) and No Family Hx of Anesthesia Complications History of PONV No Hx of Motion Sickness and History of PONV Social History Smoking Status: Former smoker tobacco type: cigarettes Do You Dip or Chew Tobacco: No Smoking End Date: Quit 30 years ago Hx Alcohol Use: No Hx Substance Use: No substance use type: does not use Review of Systems Patient denies chest pain, shortness of breath, dyspnea on exertion, fever, chills, cough, wheezing, palpitations. Physical Exam Vital Signs VITALS BP 118/74 P 74 TEMP 98.9 SP02 100%RA RESP 16 PHYSICAL Mildly decreased cervical extension range of motion. Full TMJ range of motion. TMD 3.5 finger breaths Mallampati Score 1 Dentition: intact, + crowns Lungs: clear throughout to auscultation Cardiac: regular rate and rhythm, no murmurs noted Spine: normal Carotid arteries: negative bruit Extremities: no edema Lab Results Anesthesia Preop Results Results Anesthesia Widget: WBC 4.94 K/ul (4.8-10.8) 05/02/22 Hgb 11.6 g/dl (12.0-16.0) L 05/02/22 Hct 35.9 % (37.0-47.0) L 05/02/22 Plt 161 K/uL (130-400) 05/02/22 Na 142 mmol/L (136-145) 05/02/22 K 4.3 mmol/L (3.5-5.1) 05/02/22 Cl 111 mmol/L (98-107) H 05/02/22 CO2 24 mmol/L (21-32) 05/02/22 BUN 24 mg/dl (6-23) H 05/02/22 Creat 1.08 mg/dl (0.6-1.2) 05/02/22 Glucose Level 81 mg/dl (70-99(Fasting)) 05/02/22 PT 10.4 Seconds (9.0-12.0) 05/02/22 PTT 25.6 Seconds (21.0-31.0) 05/02/22 INR 1.0 (0.9-1.1) 05/02/22 TSH 4.174 uIu/ml (0.300-4.500) 04/23/22 HA1c 5.4 % (4.5-5.6) 05/02/22 Urine Color Yellow 05/02/22 Urine Appearance Clear (Clear) 05/02/22 Urine pH 5.0 (4.5-7.5) 05/02/22 Urine Specific Ceres 1.011 (1.000-1.030) 05/02/22 Urine Protein Negative (Negative) 05/02/22 Urine Glucose (UA) Negative (Negative) 05/02/22 Urine Ketones Negative (Negative) 05/02/22 Urine Blood Negative (Negative) 05/02/22 Urine Nitrite Negative (Negative) 05/02/22 Urine Bilirubin Negative (Negative) 05/02/22 Urine Urobilinogen Negative (Negative) 05/02/22 Urine Leukocyte Esterase Negative (Negative) 05/02/22 SARS-CoV-2, RNA, NAAT NEGATIVE (NEGATIVE) 04/23/22 Blood Type O Positive 05/02/22 Antibody Screen NEGATIVE 05/02/22 Testing Electrocardiogram Date: 04/23/22 SB with sinus arrhythmia at 59bpm. Low voltage QRS. NS ST/TWA. Stress Test Date: 04/23/22 Negative dobutamine stress echo/ECG for ischemia at 86% MPHR. Echo: EF 60-65%. No regional motion abnormalities. No LVH. No significant valvular disease. COVID-19 Risk Screen Screening Information COVID-19 Screen Date: 05/02/22 Exposure 21 Days Family/Household +COVID Last 21 Days: No Exposure 10 Days Any COVID Exposure Last 10 Days: No Symptoms Last 10 Days Experienced COVID Sx Last 10 Days: No + COVID 0-90 Days COVID + in Last 0-90 Days: No
--- NOTE | 2022-05-06 10:11 | History & Physical Report ---
Date of Service May 06, 2022 Assessment & Plan (1) Osteoarthritis of left hip: Plan: PRE-OP Diagnosis: Left hip osteoarthritis Planned Procedure: Left total hip arthroplasty Plan: Patient is scheduled to undergo this procedure at the [facility] with a 23-hour observation admission with Dr. Shultz on May. Risks and complications of the procedure such as: Infection, bleeding, pain, scarring, nerve blood vessel damage, weakness, wound problems, stiffness, incomplete relief of symptoms, hardware failure, hardware loosening, wear, fracture, tendon or ligament injury, dislocation, leg length inequality, blood clots, Embolism, heart attack, stroke and were explained to the patient at her visit today. Informed consent to perform the procedure was obtained. Patient also understands risks of proceeding with surgical intervention during the COVID-19 pandemic. Currently patient is asymptomatic and has not been in contact with anyone positive for the virus recently. Patient has an appointment to meet with anesthesia later today and while there will obtain CBC with differential, complete metabolic panel, PT/INR, blood type and screen, urinalysis, urine culture and sensitivity, hemoglobin A1c and a shagufta al culture for MRSA. Patient's EKG is up-to-date. Patient will also need preoperative medical clearance from their primary care provider. She did see Dr. Chacon on April 23 because she complained of chest pain and sent her to the ED for evaluation. She states that she does have a follow-up scheduled with him next week. Patient states that she plans on doing in-home physical therapy for the first 1 to 2 weeks postoperatively with [facility]. Patient states that she will most likely elect to do outpatient physical therapy at our PT clinic. Patient will need a walker, raised toilet seat, shower chair and a hip kit. During today's visit we reviewed the total hip packet as well as precautions. We discussed discharge planning from the hospital. I provided paperwork to obtain a handicap placard for their vehicle. We discussed lectures offered by [facility] in regards to joint replacement surgery via Zoom. I advised the patient that upon discharge from hospital we will prescribe a narcotic pain medication and anti-inflammatory. Patient will also be on an 81 mg aspirin twice daily for blood clot prevention. Patient will be scheduled for 2-week postoperative follow-up visit with myself on May 29 at 11:15 AM. At that visit we will Provide the patient with an order for outpatient physical therapy and rehab protocol. Patient verbalizes und erstanding of all information provided during today's visit. She thanks for the care that she received. If she has questions or concerns that should arise prior to her surgery, she will contact clinic. This chart was completed utilizing [employer] voice recognition software. Grammatical errors, random word insertions, pronoun errors, and in complete sentences are an occasional consequence of the system. Any questions or concerns about the content, text, or information contained within the body of this dictation should be addressed directly to the physician for clarification. History of Present Illness Chief Complaint: Chief Complaint: Left hip pain Primary Care Provider: Glen Floyd MD History of Present Illness (including history relevant to procedure): 71-year-old female presents the clinic today for preoperative history and physical. Patient has had issues with her left hip for about 10 years. She has had progressive worsening of her symptoms. Patient localizes most of her pain to the groin area. She states that her range of motion is very limited. Patient is having issues with sitting, walking, lying down, and doing stairs. Really nothing makes it feel any better. Patient would like to proceed with le ft total hip arthroplasty. Review Of Systems: A 12 point review of systems is performed and is unremarkable except for those things stated in the HPI past medical history. Past Medical History: Problems: GERD (gastroesophageal reflux disease) History of fracture of hip Dissociative identity disorder Thrombocytopenia Bipolar disease, chronic Schatzki's ring of distal esophagus Need for shingles vaccine Need for pneumococcal vaccine Need for Tdap vaccination Asthma Left hip pain Need for hepatitis C screening test Breast cancer screening Left-sided headache Restless leg syndrome History of diabetes mellitus, type II Female stress incontinence Impaired fasting glucose Hemangioma, genital Hyperlipidemia Genital herpes Hypothyroid Anxiety Overactive bladder Hemorrhoids, internal Need for influenza vaccination Medicare annual wellness visit, subsequent Procedure History Procedure Procedure Date Comments ORIF - Open reduction and internal fixation of fracture - right femur MARILYN - Total abdominal hysterectomy - endometriosis and fibroid TKR -Total prosthetic replacement of knee joint using cement - bilateral Total replacement of right hip joint - s/p fracture Chest x-ray 04/23/2022 - Impression: Cardiomegaly with no acute cardiopulmonary abnormality identified Chest X-ray 01/22/2022 - impression:Cardiomegaly and emphysema with no active disease in the chest Mammogram 05/11/2020 - Impression:No persistent suspicious mammographic or sonographic abnormality seen. Mammogram 02/23/2019 - Impression:stable mammogram without new findings suspicious of malignancy Ultrasound abdomen 08/16/2018 - Impression:Normal hepatobiliary study with normal gallbladder ejection fraction. US EXAM ABDOM COMPLETE 08/09/2018 - gallbladder is mildly distended with a small amount of sludge. no stones or inflammatory changes of the wall. could reflect cholecystitis. hida scan suggested Colonoscopy 03/11/2018 - hyperplastic polyp - had a polyp Myocardial perfusion scan 03/05/2018 - normal perfuysion study left ventricular ejf DEXA of hip and spine 01/06/2016 Colonoscopy 01/17/2014 - normal mucosa Allergies and Sensitivities: codeine(unclear) Social history: Patient states that she was a pack-a-day smoker but quit in 1989. She denies alcohol or illicit drug use. Family history: Anxiety: Mother () Arrhythmia: Brother () Arthritis: Brother Bipolar disorder: Mother () Breast cancer: Mother () Depression: Mother () Hypercholesterolemia: Brother, Mother () Hypertension: Father (), Mother () Hypothyroidism: Mother () Type II diabetes mellitus: Brother, Mother () Current Home Meds: (Last Updated 05/06 09:50) acetaminophen (Tylenol 500 mg oral tablet) 1,000 mg PO bid albuterol (albuterol CFC free 90 mcg/inh MDI) 2 puff inhaled qid PRN: as needed for wheezing use with spacer chamber atorvastatin (atorvastatin 40 mg oral tablet) 40 mg PO Daily busPIRone (busPIRone 15 mg oral tablet) 30 mg PO tid ciprofloxacin (Cipro 500 mg oral tablet) 500 mg PO q12h preop doxycycline (doxycycline monohydrate 100 mg oral tablet) 100 mg PO bid ferrous sulfate (ferrous sulfate 325 mg (65 mg elemental iron) oral delayed release tablet) 325 mg PO Daily lamoTRIgine (lamoTRIgine 200 mg oral tablet) 200 mg PO bid levothyroxine (Euthyrox 50 mcg (0.05 mg) oral tablet) 50 mcg PO Daily lisinopril (lisinopril 10 mg oral tablet) 10 mg PO Daily montelukast (montelukast 10 mg oral tablet) 10 mg PO qPM omeprazole (omeprazole 20 mg oral delayed release capsule) 20 mg PO bid pneumococcal 20-valent conjugate vaccine (Prevnar 20 intramuscular suspension) 0.5 mL IM ONCE risperiDONE (risperiDONE 3 mg oral tablet) 3 mg PO Daily tetanus/diphth/pertuss (Tdap) adult/adol (tetanus/diphth/pertussis (Tdap) adult/adol 5 units-2 units-15.5 mcg/0.5 mL intramuscular suspension) 0.5 mL IM ONCE please administer topiramate (topiramate 100 mg oral tablet) 300 mg PO qhs valACYclovir (Valtrex 500 mg oral tablet) 500 mg PO bid venlafaxine (venlafaxine 150 mg oral capsule, extended release) 150 mg PO bid zoster vaccine, inactivated (Shingrix intramuscular injection) 0.5 mL IM ONCE repeat dose in 2 to 6 months Allergies Allergy/AdvReac Type Severity Reaction Status Date / Time codeine AdvReac Intermediate Vomiting Verified 04/23/22 16:02 Home Medications Medication Instructions Recorded Confirmed Type acetaminophen 500 mg tablet 1,000 mg PO BID PRN Pain 04/15/22 04/23/22 History ascorbic acid (vitamin C) 1,000 mg 1,000 mg PO BID 04/15/22 04/23/22 History tablet,extended release (Vitamin C ER) atorvastatin 40 mg tablet (Lipitor) 40 mg PO PM 04/15/22 04/23/22 History buspirone 15 mg tablet 15 mg PO QAM 04/15/22 04/23/22 History lamotrigine 200 mg tablet 200 mg PO BID 04/15/22 04/23/22 History levothyroxine 50 mcg tablet 50 mcg PO QAM 04/15/22 04/23/22 History lisinopril 10 mg tablet 10 mg PO QAM 04/15/22 04/23/22 History montelukast 10 mg tablet 10 mg PO QAM 04/15/22 04/23/22 History multivitamin 1 tab PO QAM 04/15/22 04/23/22 History omeprazole 20 mg capsule,delayed 20 mg PO BID 04/15/22 04/23/22 History release risperidone 3 mg tablet 3 mg PO HS 04/15/22 04/23/22 History topiramate 100 mg tablet 300 mg PO HS 04/15/22 04/23/22 History valacyclovir 500 mg tablet 500 mg PO BID 04/15/22 04/23/22 History venlafaxine 150 mg 300 mg PO QAM 04/15/22 04/23/22 History capsule,extended release 24 hr Past Med/Surg History Medical History Anxiety and depression Asthma Bipolar disorder COPD (chronic obstructive pulmonary disease) GERD (gastroesophageal reflux disease) Hyperlipidemia Hypertension Hypothyroidism OCD (obsessive compulsive disorder) Surgical History History of bilateral knee replacement History of esophagogastroduodenoscopy (EGD) History of open reduction and internal fixation (ORIF) procedure Right femur History of removal of retained hardware R/t femur ORIF History of right hip replacement Hx of colonoscopy Hx of hysterectomy Hx of tonsillectomy Nausea and vomiting after administration of anesthetic agent Family History Other Hx of cardiac disorder Social History Smoking Status: Former smoker Second Hand Exposure: No; Hx Alcohol Use: No Hx Substance Use: No Preferred Language: Turkmen Communication Ability: Effective Metal Burrer Required: No Beliefs That Will Affect Care: None Current Living Situation: Spouse Feels Safe at Home: Yes Assistive Devices: Glasses Review of Systems All systems reviewed & are unremarkable except as noted in Subjective Physical Exam Physical Exam: Physical Exam: (relevant to the procedure, including heart and lung evaluation) General: Alert and oriented x3 appropriately and hygiene Eyes: Pupils are equal react light accommodation. Extraocular movements are intact Throat: Posterior oropharynx is clear with absence of edema, erythema or exudate. Dentition is appropriate Cardiac: Regular rate and rhythm with no murmurs or gallops appreciated Lungs: Clear to auscultation throughout with no wheezing, rales or rhonchi Abdomen: Mildly obese, nondistended, nontender with NABS Extremities: Left hip; straight leg raise test, labral test essential with this all positive with referred pain to the groin. Flexion is limited to 90 degrees, internal rotation to -5 degrees, external rotation to 35 degrees. Patient has tenderness to palpation in the groin area. She is neurovascular intact Neuro: Cranial nerves II through XII intact no motor or sensory deficit Skin: Normal in appearance no open skin areas or discharge Results & Data ([facility]) Diagnostic Findings Studies (relevant to the procedure): X-rays done include AP pelvis, false profile view, and cross-table lateral of the left hip. These show severe lest-ud-yrst arthritis with large marginal osteophytes. A well-fixed total hip arthroplasty is noted in the right side.
[2022-05-15] MEDS ORDERED: ACETAMINOPHEN 500 MG TAB PO SCH (06:00)
[2022-05-15] MEDS ORDERED: Scopolamine 1 MG TDSY TD SCH (06:00)
[2022-05-15] MEDS ORDERED: traMADol HCL 50 MG TABLET PO SCH (06:00)
[2022-05-15] MEDS ORDERED: LR 500ML BOLUS, THEN 15ML/HR IV SCH (06:00)
[2022-05-15] MEDS ORDERED: dexAMETHasone 4 MG TAB PO SCH (06:00)
[2022-05-15] MEDS ORDERED: LR 60ML/HR IV SCH (06:00)
[2022-05-15] MEDS ORDERED: CeleBREX 200 MG CAP PO SCH ×2 (06:00→09:00)
[2022-05-15] MEDS ORDERED: ceFAZolin 2000MG 2,000 MG/15 ML SYR IV SCH (06:00)
[2022-05-15] MEDS ORDERED: ROPIVACAINE 0.5% HCL/PF 150 MG, BUPIVACAINE 0.75% MPF 20 ML, EPINEPHrine 0.15 MG, Ketor... INFIL SCH (06:00)
[2022-05-15] MEDS ORDERED: TRANEXAMIC ACID 1,000 MG **IV Intra-op IV SCH (06:00)
[2022-05-15] MEDS ORDERED: FAMOTIDINE 20 MG TAB PO SCH (06:00)
[2022-05-15] MEDS ORDERED: TRANEXAMIC ACID 1,000 MG **IV Pre-op IV SCH (06:00)
[2022-05-15] MEDS ORDERED: BUPIVACAINE 0.5 % 5 MG/1 ML PF 10ML VIAL ONE (06:16)
[2022-05-15] MEDS ORDERED: MIDAZOLAM HCL 1 MG/ML 2ML VIAL ONE (06:38)
[2022-05-15] MEDS ORDERED: PROPOFOL IV EMULSION 10 MG/ML 20 ML VIAL IV ONE (06:38)
[2022-05-15] MEDS ORDERED: LIDOCAINE 2% MPF LOCAL 5 ML VIAL INFIL ONE (06:38)
--- NOTE | 2022-05-15 06:41 | History & Physical Bridge Note ---
Date of Service May 15, 2022 History & Physical Bridge Note I have examined the patient, reviewed the History & Physical and in the interval since the performance of the History & Physical I have noted the following changes of clinical significance: no changes noted
[2022-05-15] MEDS ORDERED: ORTHO JOINT ANESTHETIC ONE (06:54)
[2022-05-15] MEDS ORDERED: ePHEDrine sulfate 50 MG/ML SYR ONE (07:18)
[2022-05-15] MEDS ORDERED: ePHEDrine sulfate 50 MG/ML AMP IV PRN (07:23)
[2022-05-15] MEDS ORDERED: ATROPINE SULFATE 0.1 MG/ML 10ML SYR IV PRN (07:23)
[2022-05-15] MEDS ORDERED: ONDANSETRON INJ 2 MG/ML 2 ML VIAL IV PRN ×2 (07:23→08:50)
[2022-05-15] MEDS ORDERED: HYDROmorphone INJ 1 MG/ML SYRINGE IV PRN (07:23)
[2022-05-15] MEDS ORDERED: ACETAMINOPHEN 1,000 MG/100 ML VIAL IV STA (07:23)
--- NOTE | 2022-05-15 08:44 | Operative Report ---
Post Operative Report Pre & Post Diagnosis Operation Date: 05/15/22 07:00 Pre-Op Diagnosis: Left Hip Osteoarthritis Post-Op Diagnosis: Left Hip Osteoarthritis I identified the patient and participated in the time-out.: Yes Procedure Operation Date: 05/15/22 07:00 Actual Procedures p Left Total Hip Arthroplasty--Uncemented(Left) - Craig Shultz MD Surgeon Craig Shultz MD Safety Administrator AUDI Bowens PA-C. No resident or fellow was available to assist. Estimated Blood Loss 100 Findings Consistent with Post-Op Diagnosis Specimens Left femoral head Anesthesia Type Spinal MAC Complications none Disposition Disposition: Recovery Room Indications 71-year-old female with left hip osteoarthritis refractory to conservative management. X-rays demonstrate [id number] disease. She has previously undergone a right total hip arthroplasty with good result. She elects to proceed with left total hip arthroplasty. Reviewed risk and benefit surgery, alternatives surgery, and expected outcomes. All questions were answered. Informed consent was signed. Description of Procedure Patient was identified in the preoperative holding area where the surgical site, left hip, was marked. A spinal anesthetic was placed, then the patient was brought back to the main operating room, placed in the operating table and moved into the lateral decubitus position. Axillary roll was placed. All bony prominences were padded. Perioperative antibiotics and tranexamic acid 1 gram IV were administered. Operative extremity was prepped and draped in the normal sterile fashion. Prior to incision a multidisciplinary timeout was called. All in the room were in agreement. We began by making an incision for a posterior approach to the hip. We dissected down through subcutaneous tissues to the level of the fascia. The fascia was incised in line with the incision. Charnley bow was placed. Fatty tissue was reflected posteriorly off the back of the greater trochanter to expose the piriformis and short external rotators of the hip. The piriformis and short external rotators were dissected off the posterior aspect of the hip. A box cut was made in the capsule. Inferior hip capsule was released off the femur. The femoral head was dislocated. The femoral neck cut was made at our preoperative template. The acetabulum was then exposed. The labrum was sharply excised. Contents of the cotyloid fossa were removed with electrocautery. We then began reaming at a size 8 mm less than our preoperative template. We reamed up by [address] the way up to a size 56 mm cup. This gave us good bleeding cancellus bone circumferentially. The acetabulum was then irrigated out and dried. The real Outing Gription cup was then impacted down into position with 45 degrees of lateral opening and 25 degrees of anteversion. A single cancellous bone screw was placed up into the ilium. Excellent fixation was obtained. A trial liner for a 36 mm femoral head was then placed. Next we turned our attention to the femur. The lateral neck was removed with a box osteotome. Intramedullary guide was used followed by the lateralizing reamer. We then reamed up to a size 6 [place] stem. We then broached all the way up to a size 5. We began trialing with a high offset neck and a +8.5 head. Hip was reduced. Leg lengths were symmetric. The hip was stable in extension and external rotation, and stable in the sleeper position. At 90 degrees of hip flexion the hip could be internally rotated 55 degrees before levering out of the cup. I was very happy with the stability exam. Therefore the hip was dislocated and the femoral trial was removed. The acetabulum was re-exposed, and the trial liner was removed. An Altrx polyethylene liner for a 36 mm femoral head was then impacted into the shell. The locking mechanism was checked to ensure that it had engaged which it had. The femur was re-exposed. The femoral canal was irrigated and dried. The real size 5 standard offset [place] femoral stem was opened up. This was impacted down into position. It sat at the same level as the femoral trial. Therefore the 36 mm ceramic femoral head with +8.5 mm offset was opened up and gently impacted down onto the trunnion. The hip was atraumatically reduced. Another 1 gram of IV tranexamic acid was started prior to closure. The wound was irrigated out with sterile Betadine solution. The periarticular injection cocktail was then placed. The short external rotators, piriformis, and posterior capsule were repaired through drill holes in the greater trochanter us ing #2 Vicryl. The fascia was run with a looped #1 PDS. The subcutaneous layer was closed with #1 PDS. The dermal layer was closed with 2-0 Vicryl. Zip line was used for the skin followed by a Silverlon dressing. A compressive dressing was then placed. The patient was then rolled supine. Leg lengths were rechecked and were symmetric. An abduction pillow was placed. Sedation was lifted and the patient was transferred to the recovery room in stable condition. Summary of implants: Depuy Outing Gription Acetabular Shell Sector Cup, 56 mm outer diameter Outing Cancellous bone screw, 6.5 x 40 mm Outing Altrx Polyethylene Acetabular Liner, Neutral, with a 36 mm inner diameter DePuy [place] Femoral stem with [place], 12/14 taper, size 5 high offset 36 mm ceramic femoral head with +8.5 offset Postoperative course: Patient will be admitted to the hospital from the recovery room. Patient will be weightbearing as tolerated with posterior hip precautions. Aspirin for DVT prophylaxis I attest to the content of the Intraoperative Record and any orders documented therein. Any exceptions are noted below.
[2022-05-15] MEDS ORDERED: METOCLOPRAMIDE HCL INJ 5 MG/ML 2 ML VIAL IV PRN (08:50)
[2022-05-15] MEDS ORDERED: bisacodyL 10 MG SUPP PR PRN (08:50)
[2022-05-15] MEDS ORDERED: diphenhydrAMINE 50 MG/ML VIAL IV PRN (08:50)
[2022-05-15] MEDS ORDERED: ALUMINUM/MAGNESIUM SUSP 30 ML UDC PO PRN (08:50)
[2022-05-15] MEDS ORDERED: NALOXONE HCL 0.4 MG/1 ML VIAL/CARP IV PRN (08:50)
[2022-05-15] MEDS ORDERED: MAGNESIUM HYDROXIDE SUSP 30 ML UDC PO PRN (08:50)
--- NOTE | 2022-05-15 08:50 | Operative Report ---
Post Operative Report Pre & Post Diagnosis Operation Date: 05/15/22 07:00 Pre-Op Diagnosis: Left Hip Osteoarthritis Post-Op Diagnosis: Left Hip Osteoarthritis I identified the patient and participated in the time-out.: Yes Procedure Operation Date: 05/15/22 07:00 Actual Procedures p Left Total Hip Arthroplasty--Uncemented(Left) - Craig Shultz MD Surgeon Craig Shultz MD Surface Mount Technology Operator AUDI Bowens PA-C. No resident or fellow was available to assist. Estimated Blood Loss 100 Findings Consistent with Post-Op Diagnosis Specimens femoral head Description of Procedure I was present during the entire case assisting with positioning, prepping, draping, wound retraction, wound closure, dressing and abduction pillow placement. No fellow present. Please see Dr. Shultz procedure note for specifics of the case. I attest to the content of the Intraoperative Record and any orders documented therein. Any exceptions are noted below.
[2022-05-15] MEDS ORDERED: ACETAMINOPHEN 500 MG TAB PO PRN (08:54)
[2022-05-15] MEDS ORDERED: NON-FORMULARY MEDICATION (Multivitamin Tablet) PO SCH (09:00)
[2022-05-15] MEDS ORDERED: busPIRone 15 MG TAB PO SCH (09:00)
--- NOTE | 2022-05-15 09:13 | Anesthesiology Progress Note ---
Date of Service May 15, 2022 Anesthesia Post Procedure Vital Signs Vital Signs: Temp Pulse Resp BP Pulse Ox O2 Del Method 05/15/22 05:54 36.5 C 62 20 124/66 100 Room Air Pain Intensity Left Hip: Pain Intensity: 8 Transfer of Care Handoff Completed per policy Notes Mental Status: alert / awake / arousable and participated in evaluation Nausea / Vomiting: adequately controlled Pain: adequately controlled Airway Patency, RR, SpO2: stable & adequate BP & HR: stable & adequate Hydration State: stable & adequate Neuraxial Anesthesia: was administered and sensory block is resolving Anesthetic Complications: no major complications apparent and Pt Satisfied with anesthetic care
--- NOTE | 2022-05-15 09:48 | XRay Report ---
XR pelvis 1-2V routine CLINICAL HISTORY: Postoperative evaluation. COMPARISON: Pelvis radiograph May 02, 2022. FINDINGS: Alignment of the total left hip arthroplasty is anatomic. There is no periprosthetic fract ure. Acetabular screw is in place. Right hip arthroplasty is noted. There are no unexpected radiopaqu e foreign bodies. IMPRESSION: Expected findings following total left hip arthroplasty. ACT 112: Negative or not required by law. Electronically signed by: Damian Tejada M.D. 05/15/2022 9:46 AM
[2022-05-15] MEDS: traMADol HCL 50 MG TABLET PO PRN ×2 (10:29→16:18)
[2022-05-15] MEDS: SODIUM CHLORIDE 0.9% 1000ML 1,000 ML IV SCH ×2 (10:29→20:54)
[2022-05-15] MEDS: KETOROLAC TROMETHAMINE 15 MG/ML VIAL IV SCH ×3 (11:20→23:02)
[2022-05-15] MEDS: DOCUSATE SODIUM 100 MG CAP PO SCH ×2 (11:20→20:59)
[2022-05-15] MEDS: lamoTRIgine 100 MG TAB PO SCH ×2 (11:56→21:00)
[2022-05-15] MEDS: MONTELUKAST SODIUM 10 MG TABLET PO SCH (11:56)
[2022-05-15] MEDS: VENLAFAXINE HCL XR 150 MG CAPXR PO SCH (11:56)
[2022-05-15] MEDS: LEVOTHYROXINE SODIUM 50 MCG TABLET PO SCH (11:56)
[2022-05-15] MEDS: valACYclovir HCL 500 MG TABLET PO SCH ×2 (11:58→21:02)
[2022-05-15] MEDS: lisinopril 10 MG TAB PO SCH (11:58)
[2022-05-15] MEDS: busPIRone 15 MG TAB PO SCH ×2 (12:04→20:59)
[2022-05-15] MEDS: MULTIVITAMIN TAB PO SCH (12:30)
[2022-05-15] MEDS: ASPIRIN 81 MG ECTAB PO SCH ×2 (12:30→20:58)
[2022-05-15] MEDS: HYDROmorphone INJ 0.5 MG/0.5 ML SYR IV PRN ×2 (13:51→21:11)
[2022-05-15] MEDS ORDERED: TRANEXAMIC ACID / 0.7% NACL 1,000 MG/100 ML BAG IV SCH (15:00)
[2022-05-15] MEDS: ACETAMINOPHEN 500 MG TAB PO SCH ×2 (15:14→21:02)
[2022-05-15] MEDS: Scopolamine CHECK PATCH PLACEMENT SCH ×2 (15:15→23:03)
[2022-05-15] MEDS: ceFAZolin 2000MG 2,000 MG/15 ML SYR IV SCH ×2 (15:52→23:02)
[2022-05-15] MEDS: ASCORBIC ACID 500 MG TAB PO SCH (20:57)
[2022-05-15] MEDS: ATORVASTATIN 40 MG TAB PO SCH (20:58)
[2022-05-15] MEDS: PANTOprazole 40 MG TAB PO SCH (21:00)
[2022-05-15] MEDS: risperiDONE 3 MG TABLET PO SCH (21:00)
[2022-05-15] MEDS: TOPIRAMATE 100 MG TAB PO SCH (21:01)
[2022-05-15] MEDS: SENNA 8.6 MG TAB PO SCH (21:01)
[2022-05-16] MEDS: SODIUM CHLORIDE 0.9% 1000ML 1,000 ML IV SCH (05:42)
[2022-05-16] MEDS: KETOROLAC TROMETHAMINE 15 MG/ML VIAL IV SCH (05:52)
[2022-05-16] MEDS: LEVOTHYROXINE SODIUM 50 MCG TABLET PO SCH (05:53)
[2022-05-16] MEDS: ACETAMINOPHEN 500 MG TAB PO SCH ×3 (05:53→22:22)
[2022-05-16] MEDS: traMADol HCL 50 MG TABLET PO PRN ×3 (06:45→22:21)
[2022-05-16] MEDS: Scopolamine CHECK PATCH PLACEMENT SCH ×3 (07:53→23:55)
[2022-05-16] MEDS ORDERED: dexAMETHasone 4 MG TAB PO SCH (08:00)
[2022-05-16] MEDS: ASCORBIC ACID 500 MG TAB PO SCH ×2 (08:25→20:35)
[2022-05-16] MEDS: VENLAFAXINE HCL XR 150 MG CAPXR PO SCH (08:25)
[2022-05-16] MEDS: MONTELUKAST SODIUM 10 MG TABLET PO SCH (08:25)
[2022-05-16] MEDS: valACYclovir HCL 500 MG TABLET PO SCH ×2 (08:26→20:40)
[2022-05-16] MEDS: PANTOprazole 40 MG TAB PO SCH ×2 (08:26→20:38)
[2022-05-16] MEDS: busPIRone 15 MG TAB PO SCH ×2 (08:26→20:37)
[2022-05-16] MEDS: MULTIVITAMIN TAB PO SCH (08:26)
[2022-05-16] MEDS: DOCUSATE SODIUM 100 MG CAP PO SCH ×2 (08:26→20:37)
[2022-05-16] MEDS: ASPIRIN 81 MG ECTAB PO SCH ×2 (08:27→20:36)
[2022-05-16 08:28] LABS: BUN Creatinine Ratio 23.6 (10-20); Calcium 8.2 mg/dl (8.5-10.1); Creatinine Clr Calc Pharmacy 36.3 ml/min; Est GFR (African American) 43.1 ml/min; Est GFR (Non-African American) 37.2 ml/min; Potassium 4.1 mmol/L (3.5-5.1)
[2022-05-16] MEDS: lamoTRIgine 100 MG TAB PO SCH ×2 (08:28→20:38)
[2022-05-16] MEDS: lisinopril 10 MG TAB PO SCH (08:28)
[2022-05-16 08:48] LABS: Basophils # (auto) 0.01 K/uL (0-0.2); Basophils % (auto) 0.2 %; Eosinophils # (auto) 0.01 K/uL (0-0.50); Eosinophils % (auto) 0.2 %; Hematocrit (blood only) 25.5 % (37.0-47.0); Hemoglobin 8.2 g/dl (12.0-16.0); Immature Granulocytes # (auto) 0.02 K/uL (0.01-0.20); Immature Granulocytes % (auto) 0.3 %; Lymphocytes # (auto) 0.72 K/uL (1.2-3.4); Lymphocytes % (auto) 12.3 %; Mean Corpuscular Hemoglobin 33.5 pg (25.0-34.0); Mean Corpuscular Hgb Conc 32.2 g/dL (32.0-36.0); Mean Corpuscular Volume 104.1 fL (80.0-100.0); Mean Platelet Volume 11.4 fL (9.4-12.4); Monocytes # (auto) 0.64 K/uL (0.11-0.59); Neutrophils # (auto) 4.44 K/uL (1.40-6.50); Platelet Count 110 K/uL (130-400); RDW Coefficient of Variation 13.7 % (11.5-14.5); RDW Standard Deviation 52.7 fL (36.4-46.3); Red Blood Count 2.45 M/uL (4.20-5.40); White Blood Count 5.84 K/ul (4.8-10.8)
--- NOTE | 2022-05-16 10:22 | Orthopedic Progress Note ---
Date of Service May 16, 2022 Assessment & Plan (1) S/P total left hip arthroplasty: Plan: Total hip precautions Weightbearing as tolerated with walker assistance Pain control with p.o. medication DVT prophylaxis with aspirin and WINDY stockings Keep Silverlon dressing in place until 2-week follow-up Ice with easy wrap Abduction pillow use for the first 6 weeks postoperatively when sleeping Plan is to discharge home later today with in-home physical therapy for the first 2 weeks postoperatively Follow-up at [facility] orthopedics as previously scheduled With questions contact our clinic at [phone] Admission and Anticipated Discharge Date Admission Date: May 15, 2022 Subjective This 71-year-old female is day 1 status post left total hip arthroplasty. She states that she is doing very well. She states her only issue is some dizziness but this is a chronic issue. She states she is scheduled to meet with her family doctor to discuss altering her blood pressure medication because she feels that is the route of the issue. In regards to her hip she has no pain. She states she has been able to transition from her bed to the bedside chair and get up with her walker to use the restroom. She denies numbness or tingling in the left lower extremity. She has no complaint of chest pain, shortness of breath, fever, chills, sweats or difficulty voiding. Review of Systems Review of Systems: All systems reviewed & are unremarkable except as noted in Subjective Physical Exam Physical Exam: Left hip: Outer dressing was removed. Silverlon is clean dry and intact and left in place. Patient is able to perform active straight leg raise test. Her quad strength is 4 out of 5. She is able to actively dorsi and plantarflex her foot without issue. She experiences no pain with logrolling. She has no pain with light passive hip flexion to 90 degrees or with passive external rotation. She does feel a slight twinge with some light passive internal rotation of her hip. She is neurovascularly intact in the left lower extremity. Results & Data ([facility]) Vital Signs (Past 12 Hours) Vital Signs Temp Pulse Resp BP Pulse Ox O2 Del Method 05/16/22 07:47 36.4 C L 61 16 104/65 98 Room Air 05/16/22 04:00 37.1 C 60 18 104/63 99 Room Air 05/15/22 23:14 36.9 C 60 18 108/69 96 Room Air Diagnostic Findings Laboratory Results WBC 5.84 K/ul (4.8-10.8) 05/16/22 07:06 RBC 2.45 M/uL (4.20-5.40) L 05/16/22 07:06 Hgb 8.2 g/dl (12.0-16.0) L 05/16/22 07:06 Hct 25.5 % (37.0-47.0) L 05/16/22 07:06 MCV 104.1 fL (80.0-100.0) H 05/16/22 07:06 MCH 33.5 pg (25.0-34.0) 05/16/22 07:06 MCHC 32.2 g/dL (32.0-36.0) 05/16/22 07:06 RDW Std Deviation 52.7 fL (36.4-46.3) H 05/16/22 07:06 RDW Coeff of Diane 13.7 % (11.5-14.5) 05/16/22 07:06 Plt Count 110 K/uL (130-400) L 05/16/22 07:06 MPV 11.4 fL (9.4-12.4) 05/16/22 07:06 Immature Gran % (Auto) 0.3 % 05/16/22 07:06 Neut % (Auto) 76.0 % 05/16/22 07:06 Lymph % (Auto) 12.3 % 05/16/22 07:06 Cobb % (Auto) 11.0 % 05/16/22 07:06 Eos % (Auto) 0.2 % 05/16/22 07:06 Baso % (Auto) 0.2 % 05/16/22 07:06 Neut # (Auto) 4.44 K/uL (1.40-6.50) 05/16/22 07:06 Lymph # (Auto) 0.72 K/uL (1.2-3.4) L 05/16/22 07:06 Cobb # (Auto) 0.64 K/uL (0.11-0.59) H 05/16/22 07:06 Eos # (Auto) 0.01 K/uL (0-0.50) 05/16/22 07:06 Baso # (Auto) 0.01 K/uL (0-0.2) 05/16/22 07:06 Immature Gran # (Auto) 0.02 K/uL (0.01-0.20) 05/16/22 07:06 Sodium 139 mmol/L (136-145) 05/16/22 07:06 Potassium 4.1 mmol/L (3.5-5.1) 05/16/22 07:06 Chloride 111 mmol/L (98-107) H 05/16/22 07:06 Carbon Dioxide 23 mmol/L (21-32) 05/16/22 07:06 Anion Gap 5 (3-11) 05/16/22 07:06 BUN 33 mg/dl (6-23) H 05/16/22 07:06 Creatinine 1.40 mg/dl (0.6-1.2) H 05/16/22 07:06 Est Cr Clr Drug Dosing 36.3 ml/min 05/16/22 07:06 Est GFR ( Amer) 43.1 ml/min 05/16/22 07:06 Est GFR (Non-Af Amer) 37.2 ml/min 05/16/22 07:06 BUN/Creatinine Ratio 23.6 (10-20) H 05/16/22 07:06 Glucose 89 mg/dl (70-99(Fasting)) 05/16/22 07:06 Calcium 8.2 mg/dl (8.5-10.1) L 05/16/22 07:06 SARS-CoV-2, RNA, NAAT NEGATIVE (NEGATIVE) 05/15/22 Unknown Impressions Pelvis X-Ray 05/15/22 08:50 XR pelvis 1-2V routine CLINICAL HISTORY: Postoperative evaluation. COMPARISON: Pelvis radiograph May 02, 2022. FINDINGS: Alignment of the total left hip arthroplasty is anatomic. There is no periprosthetic fracture. Acetabular screw is in place. Right hip arthroplasty is noted. There are no unexpected radiopaque foreign bodies. IMPRESSION: Expected findings following total left hip arthroplasty. ACT 112: Negative or not required by law. Electronically signed by: Damian Tejada M.D. 05/15/2022 9:46 AM
--- NOTE | 2022-05-16 10:28 | Discharge Summary ---
Date of Service May 16, 2022 Admission HPI Per Admitting Provider History of Present Illness (including history relevant to procedure): 71-year-old female presents the clinic today for preoperative history and physical. Patient has had issues with her left hip for about 10 years. She has had progressive worsening of her symptoms. Patient localizes most of her pain to the groin area. She states that her range of motion is very limited. Patient is having issues with sitting, walking, lying down, and doing stairs. Really nothing makes it feel any better. Patient would like to proceed with left total hip arthroplasty. Review Of Systems: A 12 point review of systems is performed and is unremarkable except for those things stated in the HPI past medical history. Past Medical History: Problems: GERD (gastroesophageal reflux disease) History of fracture of hip Dissociative identity disorder Thrombocytopenia Bipolar disease, chronic Schatzki's ring of distal esophagus Need for shingles vaccine Need for pneumococcal vaccine Need for Tdap vaccination Asthma Left hip pain Need for hepatitis C screening test Breast cancer screening Left-sided headache Restless leg syndrome History of diabetes mellitus, type II Female stress incontinence Impaired fasting glucose Hemangioma, genital Hyperlipidemia Genital herpes Hypothyroid Anxiety Overactive bladder Hemorrhoids, internal Need for influenza vaccination Medicare annual wellness visit, subsequent Procedure History Procedure Procedure Date Comments ORIF - Open reduction and internal fixation of fracture - right femur MARILYN - Total abdominal hysterectomy - endometriosis and fibroid TKR -Total prosthetic replacement of knee joint using cement - bilateral Total replacement of right hip joint - s/p fracture Chest x-ray 04/23/2022 - Impression: Cardiomegaly with no acute cardiopulmonary abnormality identified Chest X-ray 01/22/2022 - impression:Cardiomegaly and emphysema with no active disease in the chest Mammogram 05/11/2020 - Impression:No persistent suspicious mammographic or sonographic abnormality seen. Mammogram 02/23/2019 - Impression:stable mammogram without new findings suspicious of malignancy Ultrasound abdomen 08/16/2018 - Impression:Normal hepatobiliary study with normal gallbladder ejection fraction. US EXAM ABDOM COMPLETE 08/09/2018 - gallbladder is mildly distended with a small amount of sludge. no stones or inflammatory changes of the wall. could reflect cholecystitis. hida scan suggested Colonoscopy 03/11/2018 - hyperplastic polyp - had a polyp Myocardial perfusion scan 03/05/2018 - normal perfuysion study left ventricular ejf DEXA of hip and spine 01/06/2016 Colonoscopy 01/17/2014 - normal mucosa Allergies and Sensitivities: codeine(unclear) Social history: Patient states that she was a pack-a-day smoker but quit in 1989. She denies alcohol or illicit drug use. Family history: Anxiety: Mother () Arrhythmia: Brother () Arthritis: Brother Bipolar disorder: Mother () Breast cancer: Mother () Depression: Mother () Hypercholesterolemia: Brother, Mother () Hypertension: Father (), Mother () Hypothyroidism: Mother () Type II diabetes mellitus: Brother, Mother () Current Home Meds: (Last Updated 05/06 09:50) acetaminophen (Tylenol 500 mg oral tablet) 1,000 mg PO bid albuterol (albuterol CFC free 90 mcg/inh MDI) 2 puff inhaled qid PRN: as needed for wheezing use with spacer chamber atorvastatin (atorvastatin 40 mg oral tablet) 40 mg PO Daily busPIRone (busPIRone 15 mg oral tablet) 30 mg PO tid ciprofloxacin (Cipro 500 mg oral tablet) 500 mg PO q12h preop doxycycline (doxycycline monohydrate 100 mg oral tablet) 100 mg PO bid ferrous sulfate (ferrous sulfate 325 mg (65 mg elemental iron) oral delayed release tablet) 325 mg PO Daily lamoTRIgine (lamoTRIgine 200 mg oral tablet) 200 mg PO bid levothyroxine (Euthyrox 50 mcg (0.05 mg) oral tablet) 50 mcg PO Daily lisinopril (lisinopril 10 mg oral tablet) 10 mg PO Daily montelukast (montelukast 10 mg oral tablet) 10 mg PO qPM omeprazole (omeprazole 20 mg oral delayed release capsule) 20 mg PO bid pneumococcal 20-valent conjugate vaccine (Prevnar 20 intramuscular suspension) 0.5 mL IM ONCE risperiDONE (risperiDONE 3 mg oral tablet) 3 mg PO Daily tetanus/diphth/pertuss (Tdap) adult/adol (tetanus/diphth/pertussis (Tdap) adult/adol 5 units-2 units-15.5 mcg/0.5 mL intramuscular suspension) 0.5 mL IM ONCE please administer topiramate (topiramate 100 mg oral tablet) 300 mg PO qhs valACYclovir (Valtrex 500 mg oral tablet) 500 mg PO bid venlafaxine (venlafaxine 150 mg oral capsule, extended release) 150 mg PO bid zoster vaccine, inactivated (Shingrix intramuscular injection) 0.5 mL IM ONCE repeat dose in 2 to 6 months Admission Exam Per Admitting Provider Physical Exam: (relevant to the procedure, including heart and lung evaluation) General: Alert and oriented x3 appropriately and hygiene Eyes: Pupils are equal react light accommodation. Extraocular movements are intact Throat: Posterior oropharynx is clear with absence of edema, erythema or exudate. Dentition is appropriate Cardiac: Regular rate and rhythm with no murmurs or gallops appreciated Lungs: Clear to auscultation throughout with no wheezing, rales or rhonchi Abdomen: Mildly obese, nondistended, nontender with NABS Extremities: Left hip; straight leg raise test, labral test essential with this all positive with referred pain to the groin. Flexion is limited to 90 degrees, internal rotation to -5 degrees, external rotation to 35 degrees. Patient has tenderness to palpation in the groin area. She is neurovascular intact Neuro: Cranial nerves II through XII intact no motor or sensory deficit Skin: Normal in appearance no open skin areas or discharge Principal Diagnosis left Hip Osteoarthritis Discharge Exam Left hip: Outer dressing was removed. Silverlon is clean dry and intact and left in place. Patient is able to perform active straight leg raise test. Her quad strength is 4 out of 5. She is able to actively dorsi and plantarflex her foot without issue. She experiences no pain with logrolling. She has no pain with light passive hip flexion to 90 degrees or with passive external rotation. She does feel a slight twinge with some light passive internal rotation of her hip. She is neurovascularly intact in the left lower extremity. Discharge Data Allergies Allergy/AdvReac Type Severity Reaction Status Date / Time codeine AdvReac Intermediate Vomiting Verified 05/15/22 06:26 Procedures Performed Operation Date: 05/15/22 07:00 Actual Procedures p Left Total Hip Arthroplasty--Uncemented(Left) - Craig Shultz MD Hospital Course (1) S/P total left hip arthroplasty: Patient had an uneventful overnight stay following left total hip arthroplasty. She is very pleased with the results of the surgery. Her plan is to be discharged home later today with in-home physical therapy to begin this weekend. I advised her if she has questions or concerns to be sure and contact our clinic. Total hip precautions Weightbearing as tolerated with walker assistance Pain control with p.o. medication DVT prophylaxis with aspirin and WINDY stockings Keep Silverlon dressing in place until 2-week follow-up Ice with easy wrap Abduction pillow use for the first 6 weeks postoperatively when sleeping Plan is to discharge home later today with in-home physical therapy for the first 2 weeks postoperatively [facility] at [facility] as previously scheduled With questions contact our clinic at [phone] Total Time Total Time Spent Total Time Spent (In Minutes): 25 mins Discharge Plan Discharge Items Patient Disposition: Home - Home Health Services Reason For Visit: Left Hip Osteoarthritis Discharge Diagnosis: Left Hip Osteoarthritis Activity: As commented below Lifting: None Bathing: Keep incision dry Bathing Comment: May shower tomorrow Sexual Activity: Wait until after follow-up appointment Exercise/Sports: Wait until after follow-up appointment Driving/Machine Use: No driving until cleared by home care specialist Weightbearing: Left weightbearing Weightbearing Comment: as tolerated with walker assistance Non-emergency contact: Surgeon Call non-emergency contact if: you have any medication questions, your pain is not controlled, your temperature is above 101.5, your wound has increased drainage and your wound pain has increased Follow-up/Referrals: Glen Floyd MD [Primary Care Provider] - Adam Bowens PA-C [Physician Sales Support Consultant] - 05/28/22 11:15 am Diet: Regular Addtl Attending Provider Instructions: Post-operative Instructions Dear Patient and Family/Friends, Before you are discharged from the hospital, it is important to know what to expect when you get home after surgery. To that end, we have created this sheet of discharge instructions which covers many commonly asked questions. Make sure you go through this sheet in its entirety with your nurse before you are discharged. Please note that we will go over the specifics of your surgery and recovery when you return for your first post-operative visit. Sincerely, Dr. Shultz Medications 1. Tramadol 50 mg: take 1-2 tabs every 4-6 hour as needed for post op pain relief. A prescription for this medication will be sent to your pharmacy. 2. Diclofenac Sodium 75 mg: take 1 tab twice daily for 30 days post operatively. A prescription will be sent to your pharmacy with 1 refill. 3. Aspirin 81 mg: take 1 tab twice daily for 30 days post operatively for blood clot prevention. Please purchase. 4. Extra Strength Tylenol 500 mg: take 2 tabs every 6-8 hours for additional pain relief. Please purchase this medication. Pain Expect to be in a fair amount of pain after surgery. Remember, our goal is not to eliminate your pain, but to make it tolerable. It is a good idea to stay ahead of your pain by taking the medications you were prescribed once you get home. Typically, the pain starts improving 3-7 days after surgery. You should start weaning off the narcotic pain medication (oxycodone, hydrocodone, hydromorphone, morphine) as soon as your pain improves. Please call our office if your pain is not adequately controlled. Ice Ice your operative site at least 5 times a day for 15-30 minutes at a time. Make sure you have a thin cloth between the ice or cooling unit and your skin to prevent malik bite. This is especially important if you received a nerve block. Continue icing your operative site for the first 5-7 days after surgery, then as needed. Diet/Nausea/Vomiting Start by drinking clear liquids and eating crackers. If you can tolerate this, then you may resume your normal diet. If you feel nauseated or vomit, take Zofran/ondansetron (if prescribed). Please call our office if you have intractable nausea or vomiting, or, if after hours, you may go to the Emergency Room for help. Constipation Constipation is a common side effect of narcotic pain medication. If you have not had a bowel movement within 2 days after surgery, we recommend purchasing an over the counter laxative such as Milk of Magnesia, Dulcolax, or Miralax from a local pharmacy, and taking it as instructed. Call our clinic if any questions. Nerve block The anesthesia team sometimes places a nerve block to help with post-operative pain control. This results in significant numbness and inability to move the extremity. The nerve block usually wears off in 8-12 hours, but sometimes can last up to 24 hours. Please call our office if you are still unable to move your extremity after 24 hours, unless you received a pain pump to take home. Nerve blocks typically wear off quickly, so start taking pain medication as soon as you start feeling soreness near your surgical site. Weight bearing and Range of Motion. Do not bear any weight through your operative extremity immediately after surgery. If you had upper extremity surgery, do not lift anything with that arm. If you are in a knee brace, keep it locked in place until your follow-up. We will discuss your weight bearing, range of motion, and lifting restrictions in detail at your first post-operative appointment. Continuous Passive Motion (CPM) Machine If you were prescribed a CPM machine, it will start after your first post- operative appointment, at which time we will give you instructions on the range of motion settings and duration of treatment Physical therapy You will be given a prescription for physical therapy or occupational therapy at your first post-operative appointment. Typically, patients start therapy within 1 week of surgery Wound care and showering We will inspect your wound at your first post-operative visit, and may do a dressing change at that time. Most patients will be in a water-proof dressing that is removed 14 days after surgery. It is normal to see some dried blood on the dressing. Do not remove your dressing, paper strips or sutures yourself unless you are given permission. Showering is allowed the day after surgery. Do not scrub or remove any dressings. The wound should not be submerged underwater (i.e. in a bathtub or pool) until 4 weeks after surgery WINDY stockings If you were given white stockings, these are to be worn at all times except to shower (on both legs) for the first 2 weeks after surgery. Driving You may not drive while taking narcotic pain medication or while in a cast, splint, sling or brace. You, the patient, need to make the final determination about when you are safe to drive, however, the earliest you may consider driving after surgery is below: Hand/Wrist/Elbow Surgery: 3 days Shoulder Surgery: 2 weeks Hip,/Knee/Ankle Surgery: 4 weeks Fracture repair: 6 weeks Return to Work Your return to work depends on what surgery was done and what type of work you do. Please bring any paperwork your employer needs completed to your first post-operative visit. Also, bring a description of your job duties, as this helps us to understand what risks you may face at work. Travel Avoid long distance travel (greater than 1 hour) in airplanes and cars for the f irst 6 weeks after surgery. If you must travel, you need to have a Doppler ultrasound done before you travel to rule out a blood clot in your legs. Follow-up You should have a follow-up appointment already scheduled 1-2 days after surgery. If not, please contact our office to make this appointment before you leave the hospital. When to call the office It is normal to have swelling and bruising in the limb that was operated on. This will improve with time. It is also normal to have fevers for the first 2 days after surgery. Reasons you should call your doctor include: Uncontrolled pain; Nausea, vomiting, or constipation that does not improve with medication; Fevers over 101.5, chills, sweats; Drainage or bleeding from the wound; Foul odor; Spreading areas of redness; Any other concerns Pending Studies at Discharge: No Stand-Alone Forms: [facility] Medications and DC Order Prescriptions: New aspirin 81 mg Tablet,Delayed Release (Dr/Ec) 81 mg PO BID 30 Days Qty: 60 0RF tramadol 50 mg Tablet 50 - 100 mg PO Q4H PRN (Reason: Postoperative pain control) Qty: 28 0RF diclofenac sodium 75 mg tablet,delayed release (DR/EC) 75 mg PO BID 30 Days Qty: 60 1RF Continued atorvastatin [Lipitor] 40 mg Tablet 40 mg PO PM lamotrigine 200 mg Tablet 200 mg PO BID venlafaxine 150 mg Capsule,Extended Release 24hr 300 mg PO QAM valacyclovir 500 mg Tablet 500 mg PO BID acetaminophen 500 mg Tablet 1,000 mg PO BID PRN (Reason: Pain) risperidone 3 mg Tablet 3 mg PO HS levothyroxine 50 mcg Tablet 50 mcg PO QAM lisinopril 10 mg Tablet 10 mg PO QAM omeprazole 20 mg Capsule,Delayed Release(Dr/Ec) 20 mg PO BID montelukast 10 mg Tablet 10 mg PO QAM topiramate 100 mg Tablet 300 mg PO HS buspirone 15 mg Tablet 15 mg PO QAM Rx Instructions: 15 MG; TAKES 60 MG QAM, THEN 30 MG QPM. multivitamin Tablet 1 tab PO QAM Vitamin C 1,000 mg Tablet Extended Release 1,000 mg PO BID Admission Data Admit Date/Time: 05/15/22 08:50 Attending Provider: Craig Shultz Admit Provider: Craig Shultz Primary Care Provider: Glen Floyd Other Providers: [employer]
--- NOTE | 2022-05-16 17:30 | Orthopedic Progress Note ---
Date of Service May 16, 2022 Assessment & Plan (1) S/P total left hip arthroplasty: Plan: Total hip precautions Weightbearing as tolerated with walker assistance. Wear PRAFO boot while ambulating to decrease risk of falling Pain control with p.o. medication DVT prophylaxis with aspirin and WINDY stockings Keep Silverlon dressing in place until 2-week follow-up Ice with easy wrap Abduction pillow use for the first 6 weeks postoperatively when sleeping Plan is to discharge tomorrow if passes PT with in-home physical therapy for the first 2 weeks postoperatively Follow-up at [facility] orthopedics as previously scheduled With questions contact our clinic at [phone] (2) Left peroneal nerve palsy: Plan: PRAFO boot to be worn while patient ambulating. Does not need to be worn in bed. Position L knee in flexion and L hip in extension as much as possible to take tension off the peroneal nerve PT/OT to do passive ROM of ankle May discharge home tomorrow if passes PT Admission and Anticipated Discharge Date Admission Date: May 15, 2022 Anticipated date of discharge: 05/17/22 Subjective Patient seen on afternoon rounds. During PT today, she was noticed to have a foot drop. She reports she has some numbness on the top of her left foot. She was ordered a PRAFO boot. Her pain is well controlled. Physical Exam Physical Exam: L leg exam: hip dressing c/d/i. No swelling to suggest a hematoma. Negative Tinels below the fibular head. She fires tibant weakly at 3/5 and peroneals are 2/5. EHL 0/5. Decreased sensation to light touch superficial and deep peroneal nerve distribution. Sensation intact to LT on plantar aspect of foot. 5/5 plantarflexion, 5/5 inversion. Results & Data ([facility]) Vital Signs (Past 12 Hours) Vital Signs Temp Pulse Resp BP Pulse Ox O2 Del Method 05/16/22 15:09 36.8 C 60 16 100/61 99 Room Air 05/16/22 11:21 36.5 C 59 L 16 106/68 98 Room Air 05/16/22 07:47 36.4 C L 61 16 104/65 98 Room Air
[2022-05-16] MEDS: ATORVASTATIN 40 MG TAB PO SCH (20:36)
[2022-05-16] MEDS: CeleBREX 200 MG CAP PO SCH (20:37)
[2022-05-16] MEDS: SENNA 8.6 MG TAB PO SCH (20:39)
[2022-05-16] MEDS: risperiDONE 3 MG TABLET PO SCH (20:39)
[2022-05-16] MEDS: TOPIRAMATE 100 MG TAB PO SCH (20:39)
[2022-05-17] MEDS: traMADol HCL 50 MG TABLET PO PRN ×2 (03:46→13:11)
[2022-05-17] MEDS: ACETAMINOPHEN 500 MG TAB PO SCH (05:58)
[2022-05-17] MEDS: LEVOTHYROXINE SODIUM 50 MCG TABLET PO SCH (05:59)
[2022-05-17] MEDS: Scopolamine CHECK PATCH PLACEMENT SCH (07:42)
[2022-05-17] MEDS: MONTELUKAST SODIUM 10 MG TABLET PO SCH (07:43)
[2022-05-17] MEDS: MULTIVITAMIN TAB PO SCH (07:43)
[2022-05-17] MEDS: PANTOprazole 40 MG TAB PO SCH (07:44)
[2022-05-17] MEDS: valACYclovir HCL 500 MG TABLET PO SCH (07:44)
[2022-05-17] MEDS: lisinopril 10 MG TAB PO SCH (07:44)
[2022-05-17] MEDS: CeleBREX 200 MG CAP PO SCH (07:44)
[2022-05-17] MEDS: VENLAFAXINE HCL XR 150 MG CAPXR PO SCH (07:44)
[2022-05-17] MEDS: lamoTRIgine 100 MG TAB PO SCH (07:44)
[2022-05-17] MEDS: busPIRone 15 MG TAB PO SCH (07:44)
[2022-05-17] MEDS: ASPIRIN 81 MG ECTAB PO SCH (07:45)
[2022-05-17] MEDS: ASCORBIC ACID 500 MG TAB PO SCH (07:45)
[2022-05-17] MEDS: DOCUSATE SODIUM 100 MG CAP PO SCH (07:45)
--- NOTE | 2022-05-17 11:46 | Orthopedic Progress Note ---
Date of Service May 17, 2022 Assessment & Plan (1) S/P total left hip arthroplasty: Plan: Discharge home today if passes PT/OT. Continue to use PRAFO boot ASA for DVT prophylaxis. WBAT with walker. POsterior hip precautions F/U in 2 weeks (2) Left peroneal nerve palsy: Admission and Anticipated Discharge Date Admission Date: May 15, 2022 Subjective Patient did well overnight. Tolerating boot well. She feels ready to go home today. Still has some numbness in the top of her left foot, but a little better today. Physical Exam Physical Exam: L foot: EHL 0/5, tib ant 3/5, peroneals 4-/5. Decreased sensation to LT in peroneal nerve distribution. Results & Data ([facility]) Vital Signs (Past 12 Hours) Vital Signs Temp Pulse Resp BP Pulse Ox O2 Del Method 05/17/22 07:52 Room Air 05/17/22 07:17 36.3 C L 55 L 16 104/64 98 Room Air
[2022-06-12] MEDS ORDERED: ROPIVACAINE 0.5% HCL/PF 150 MG, BUPIVACAINE 0.75% MPF 20 ML, EPINEPHrine 0.15 MG, Ketor... INFIL SCH (06:00)
== END 2022-05-17 15:49 | disposition home health service (06) ==
LOC: 3E 05:21 → ASU 05:21

== ENCOUNTER 2024-12-30 16:17 | Observation (INO) ==
[2024-12-30 16:26] VITALS: TEMP 98.4
--- NOTE | 2024-12-30 19:21 | Emergency Department Note ---
Impression & Plan Right upper quadrant abdominal pain, Pericardial effusion, Lower abdominal pain, Wheezing ED Provider Note CHIEF COMPLAINT: Abdominal pain HISTORY OF PRESENTING ILLNESS: This 74-year-old female patient presents to the emergency department with her for evaluation of possible gallbladder or kidney problems. The patient has been having right upper quadrant abdominal pain as well as lower abdominal pain for the past couple of days. The patient was referred from her PCP to have her kidneys and gallbladder evaluated per patient. The patient states that the upper abdominal pain does radiate into her chest somewhat, but she denies true cardiac chest pain or shortness of breath. She denies any nausea or vomiting. She denies any urinary symptoms or problems with her bowel movements. REVIEW OF SYSTEMS: See HPI for pertinent positives and pertinent negatives. ALLERGIES: Codeine MEDICATIONS: See below PAST MEDICAL HISTORY: See below PHYSICAL EXAM: VITALS: Vitals are noted on the nurse's note and reviewed by myself. GENERAL: Non toxic, in no acute distress, non-diaphoretic. SKIN: Capillary refill <2 sec. EYES: PERRLA. EOMI. Conjunctivae without injection, sclerae without icterus. NOSE: Patent without discharge. MOUTH: Mucous membranes moist. Uvula midline. Airway patent. NECK: Supple without nuchal rigidity. HEART: Regular rate and rhythm without murmurs gallops or rubs. LUNGS: Clear to auscultation bilaterally with a few scattered wheezes, but no rales or rhonchi. No retractions or accessory muscle use. ABDOMEN: Positive bowel sounds x 4. Normal tympanic percussion. Soft, tender to palpation in the right upper quadrant and epigastric area as well as in the lower abdomen. No masses or hepatosplenomegaly. Carmona sign negative. No CVA tenderness. No guarding, rigidity, or rebound tenderness. No focal RLQ or LLQ tenderness. MUSCULOSKELETAL: No gross musculoskeletal defects. NEURO: Patient was alert and oriented. No focal neurological deficits. DIFFERENTIAL DIAGNOSIS: Differential diagnosis includes angina, TN, pericarditis, myocarditis, aortic dissection, pleurisy, pneumothorax, PE, pneumonia, pneumomediastinum, esophagitis, esophageal spasm, GERD, perforated esophagus, perforated duodenal/gastric ulcer, pancreatitis, cholecystitis, costochondritis, musculoskeletal, bronchitis, URI, hepatitis, pancreatitis, cholecystitis, cholelithiasis, appendicitis, kidney stone, pyelonephritis, UTI, gastritis, gastroenteritis, mesenteric adenitis, obstruction, constipation, hernia, abdominal abscess, perforation, diverticulitis, IBD, ischemic colitis, abdominal aortic aneurysm, , ectopic , ovarian cyst, ovarian torsion, acute salpingitis, or others. ED COURSE AND MEDICAL DECISION MAKING: HISTORY FROM INDEPENDENT HISTORIAN: Additional history obtained from the patient's MEDICATIONS GIVEN: 500 mL normal saline solution bolus. Tylenol 1000 mg IV. DuoNeb treatment. MONITOR: Continuous library monitor: Order was placed for continuous library monitor. Patient was placed on the library monitor and continuous pulse ox. Patient was noted to be in normal sinus rhythm at an initial rate of 64 bpm per my interpretation. EKG: EKG was interpreted by myself as sinus bradycardia at [address] bpm with no acute [address] or T wave changes. INTERPRETATION OF LABS: I interpreted the labs with full lab results as below in the lab section of this note. Laboratory results pertinent to the emergent complaint are discussed in the MDM section below. The patient was advised to follow up with their PCP and/or specialist(s) for further outpatient monitoring and management of any abnormal results. INTERPRETATION OF IMAGING: Imaging studies were interpreted by myself and read by radiology as per the imaging section of this note. The patient was advised to follow up with their PCP and/or specialist(s) for further outpatient management of any non-emergent abnormal findings. Chest x-ray shows subsegmental infrahilar changes noted bilaterally with less prominent lung expansion. Favor subsegmental atelectasis. CTA of the chest with IV contrast showed diffuse respiratory artifact, but no definite evidence for PE. Curvilinear presumed atelectasis involving the lung bases similar to previous exam. The cardiac chambers are enlarged and have increased in size from the previous examination. At least moderate coronary artery calcification. There was also a trace pericardial effusion in the superior pericardial recess. CT scan of the abdomen and pelvis with IV contrast shows a moderately distended stomach with retained oral contents. No gastric mucosal thickening or retrograde filling of the distal esophagus. This is presumed incidental normal variant finding or possible delayed gastric emptying. The patient does have a history of gastroparesis. No evidence for focal high-grade bowel obstruction. Moderate stool burden. No diverticulitis or other acute abnormalities. Gallbladder ultrasound shows that the gallbladder is mild to moderately distended. No cholelithiasis or associated sonographic findings to suggest acute cholecystitis. Common bile duct measures 1.1 cm in diameter with no appreciable choledocholithiasis. No intrahepatic biliary dilation. Please correlate with bilirubin levels - bilirubin normal. Incidental hepatic and renal cysts without internal complex or solid components. CONSULTATIONS: On-call hospitalist MDM SUMMARY: The patient was seen during a time of extreme volume and extreme acuity. Nursing triage protocols were initiated with IV lock, labs, and/or imaging studies conducted by protocol in the triage area. The patient was initially evaluated in a triage room and then re-evaluated once they were taken back to an exam room. The patient has been having right upper quadrant abdominal pain as well as lower abdominal pain for the past couple of days. She states that she was referred to the ER by her PCP for further evaluation of her gallbladder and kidneys. The patient had mild intermittent wheezing on exam and was given a DuoNeb treatment with resolution of the symptoms. She was given IV fluids and IV Tylenol with improvement of her pain. She declined any medication for nausea. White blood cell count normal at 5.36. Hemoglobin normal at 12.1. Platelet count normal at 176. Coags were normal. Creatinine elevated at 1.25, but improved from previous labs. BUN elevated at 27 which is slightly worse. Glucose 124 and calcium 10.5, but CMP otherwise without concerning abnormalities. Lipase normal. High-sensitivity troponin normal. Urinalysis without evidence for UTI. Chest x-ray shows subsegmental infrahilar changes noted bilaterally with less prominent lung expansion. Favor subsegmental atelectasis. CTA of the chest with IV contrast showed diffuse respiratory artifact, but no definite evidence for PE. Curvilinear presumed atelectasis involving the lung bases similar to previous exam. The cardiac chambers are enlarged and have increased in size from the previous examination. At least moderate coronary artery calcification. There was also a trace pericardial effusion in the superior pericardial recess. CT scan of the abdomen and pelvis with IV contrast shows a moderately distended stomach with retained oral contents. No gastric mucosal thickening or retrograde filling of the distal esophagus. This is presumed incidental normal variant finding or possible delayed gastric emptying. The patient does have a history of gastroparesis. No evidence for focal high-grade bowel obstruction. Moderate stool burden. No diverticulitis or other acute abnormalities. Gallbladder ultrasound shows that the gallbladder is mild to moderately distended. No cholelithiasis or associated sonographic findings to suggest acute cholecystitis. Common bile duct measures 1.1 cm in diameter with no appreciable choledocholithiasis. No intrahepatic biliary dilation. Please correlate with bilirubin levels - bilirubin normal. Incidental hepatic and renal cysts without internal complex or solid components. I had a meaningful discussion about this patient with Dr. Damian who agrees with my assessment and the treatment plan. Due to the patient's increased enlarged cardiac chambers, moderate coronary artery calcification, and trace pericardial effusion along with her upper abdominal pain it was felt the patient would benefit from admission for ECHO and possible additional further evaluation and treatment. The patient's findings on her CT scan of the abdomen and pelvis are likely secondary to her gastroparesis. A HIDA scan and/or MRCP could be considered not emergently for further evaluation of her gallbladder if her right upper quadrant abdominal pain persists. I spoke with the on-call hospitalist who agreed to admit the patient for further evaluation and treatment. Please refer to their dictation for further details. The patient's care was transferred in stable condition. DIAGNOSIS: Right upper quadrant abdominal pain Lower abdominal pain Pericardial effusion Wheezing Chronic kidney disease Past Med/Surg History Problem List (Updated 12/31/24 @ 17:38 by Didi Campo PA-C) Wheezing (Acute) Lower abdominal pain (Acute) Pericardial effusion (Acute) Right upper quadrant abdominal pain (Acute) Right upper quadrant pain Pericardial effusion Anemia due to chronic kidney disease Vitamin D deficiency Ex-smoker Exertional shortness of breath Bronchiectasis ILD (interstitial lung disease) Metabolic acidosis Chronic kidney disease, stage 3a Left peroneal nerve palsy S/P total left hip arthroplasty Osteoarthritis of left hip Encounter for pre-operative examination Asthma Genital HSV COPD (chronic obstructive pulmonary disease) GERD (gastroesophageal reflux disease) Hypothyroidism Hyperlipidemia Hypertension Anxiety and depression Bipolar disorder Medical History OCD (obsessive compulsive disorder) Surgical History History of esophagogastroduodenoscopy (EGD) Hx of colonoscopy Nausea and vomiting after administration of anesthetic agent History of bilateral knee replacement History of right hip replacement Hx of hysterectomy History of removal of retained hardware History of open reduction and internal fixation (ORIF) procedure Hx of tonsillectomy Family History Other Hx of cardiac disorder Social History (Updated 10/17/24 @ 11:54 by Caryl Medina RN) Smoking Status: Never smoker Tobacco Type: Cigarettes Age Started Using Tobacco: 17; Age Quit Using Tobacco: 49; packs per day: 1; Second Hand Exposure: No; Do You Dip or Chew Tobacco: No; Hx Alcohol Use: No Hx Substance Use: No Preferred Language: Kiswahili Communication Ability: Effective Visual Impairment: No Limitations Hearing Ability: Normal Network Controller Required: No Beliefs That Will Affect Care: None Current Living Situation: Spouse and Family current occupational status: retired Feels Safe at Home: Yes Diet: regular Dental Care, Regularly: Yes Physical Activity Frequency: Does not Exercise Seatbelt Use: always Sunscreen Use: Yes Do you think of yourself as: straight/heterosexual Gender Identity: Female Assistive Devices: Glasses and Walker Allergies Allergies Allergy/AdvReac Type Severity Reaction Status Date / Time codeine AdvReac Intermediate Vomiting Verified 10/17/24 11:55 Home Meds Home Medications Medication Instructions Recorded Confirmed acetaminophen 500 mg tablet 1,000 mg PO BID Pain 04/15/22 12/31/24 ascorbic acid (vitamin C) 1,000 mg 1,000 mg PO BID 04/15/22 12/31/24 tablet,extended release (Vitamin C ER) atorvastatin 40 mg tablet (Lipitor) 40 mg PO PM 04/15/22 12/31/24 lamotrigine 200 mg tablet 200 mg PO BID 04/15/22 12/31/24 levothyroxine 50 mcg tablet 50 mcg PO QAM 04/15/22 12/31/24 montelukast 10 mg tablet 10 mg PO QPM 04/15/22 12/31/24 multivitamin 1 tab PO QAM 04/15/22 12/31/24 valacyclovir 500 mg tablet 500 mg PO BID 04/15/22 12/31/24 buspirone 15 mg tablet 30 mg PO BID 09/15/24 12/31/24 irbesartan 75 mg tablet 150 mg PO DAILY 09/15/24 12/31/24 omeprazole 20 mg capsule,delayed 20 mg PO DAILY 09/15/24 12/31/24 release risperidone 3 mg tablet 0 mg PO HS 09/15/24 12/31/24 venlafaxine 150 mg 75 mg PO QAM 09/15/24 12/31/24 capsule,extended release 24 hr Previous Rx's Medication Instructions Recorded albuterol sulfate 90 mcg/actuation 2 puffs inhalation 6XD PRN 06/23/23 aerosol inhaler shortness of breath or wheezing #6.7 grams Flutter Valve #1 ea 02/04/24 budesonide 160 mcg-glycopyr 9 2 inh inhalation BID #10.7 grams 11/03/24 mcg-formot 4.8 mcg/actuation HFA inhaler (Buzzoole) Results & Data (ED) Vital Signs Vital Signs - 24 hr 12/30/24 19:19 12/30/24 19:33 12/30/24 19:34 Pulse Rate 57 L Pulse Rate [Finger] 63 57 L Pulse Rhythm [Finger] Regular Pulse Strength [Finger] Normal Respiratory Rate 18 16 Respiratory Effort / Characteristics Non-Labored Spontaneous Respiratory Depth Normal Blood Pressure [Right Arm] 153/77 H 158/64 H Blood Pressure Mean [Right Arm] 102 95 Blood Pressure Position [Right Arm] Sitting Pulse Oximetry 100 98 Oxygen Delivery Method Room Air Room Air 12/30/24 20:00 12/30/24 22:25 12/30/24 23:21 Pulse Rate 57 L Pulse Rate [Finger] 57 L 55 L Pulse Rhythm [Finger] Pulse Strength [Finger] Respiratory Rate 16 18 Respiratory Effort / Characteristics Respiratory Depth Blood Pressure [Right Arm] 145/63 H 147/86 H Blood Pressure Mean [Right Arm] 90 106 Blood Pressure Position [Right Arm] Pulse Oximetry 98 97 Oxygen Delivery Method Room Air 12/31/24 00:00 12/31/24 02:00 Pulse Rate Pulse Rate [Finger] 47 L 52 L Pulse Rhythm [Finger] Pulse Strength [Finger] Respiratory Rate 16 20 Respiratory Effort / Characteristics Respiratory Depth Blood Pressure [Right Arm] 136/89 156/88 H Blood Pressure Mean [Right Arm] 104 110 Blood Pressure Position [Right Arm] Pulse Oximetry 97 97 Oxygen Delivery Method Room Air Room Air Laboratory Data 12/30/24 19:16 12/30/24 19:16 Lab Results 12/30/24 Range/Units 19:16 WBC 5.36 (4.8-10.8) K/ul RBC 3.54 L (4.20-5.40) M/uL Hgb 12.1 (12.0-16.0) g/dl Hct 36.4 L (37.0-47.0) % MCV 102.8 H (80.0-100.0) fL MCH 34.2 H (25.0-34.0) pg MCHC 33.2 (32.0-36.0) g/dL RDW Std Deviation 46.3 (36.4-46.3) fL RDW Coeff of Diane 12.3 (11.5-14.5) % Plt Count 176 (130-400) K/uL MPV 10.6 (9.4-12.4) fL Immature Gran % (Auto) 0.4 % Neut % (Auto) 66.5 % Lymph % (Auto) 21.1 % [place] % (Auto) 7.3 % Eos % (Auto) 4.3 % Baso % (Auto) 0.4 % Neut # (Auto) 3.57 (1.40-6.50) K/uL Lymph # (Auto) 1.13 L (1.20-3.40) K/uL [place] # (Auto) 0.39 (0.11-0.59) K/uL Eos # (Auto) 0.23 (0.00-0.50) K/uL Baso # (Auto) 0.02 (0.00-0.20) K/uL Immature Gran # (Auto) 0.02 (0.01-0.20) K/uL PT 10.3 (9.0-12.0) Seconds INR 0.9 (0.9-1.1) APTT 25 (21-31) Seconds PTT Ratio 0.9 Sodium 141 (136-145) mmol/L Potassium 4.3 (3.5-5.1) mmol/L Chloride 104 (98-107) mmol/L Carbon Dioxide 28 (21-32) mmol/L Anion Gap 9 (3-11) BUN 27 H (6-23) mg/dl Creatinine 1.25 H (0.6-1.2) mg/dl Est Cr Clr Drug Dosing 39.7 ml/min eGFR 44.67 BUN/Creatinine Ratio 21.6 H (10-20) Glucose 124 H (70-99(Fasting)) mg/dl Calcium 10.5 H (8.6-10.3) mg/dl Total Bilirubin 0.5 (0.2-1.0) mg/dl AST 27 (13-39) U/L ALT 18 (7-52) U/L Alkaline Phosphatase 75 (34-104) U/L Troponin I High Sens 10.3 (0-14) pg/ml Total Protein 7.9 (6.0-8.3) gm/dl Albumin 4.5 (3.4-5.0) gm/dl Globulin 3.4 (2.5-4.0) gm/dl Albumin/Globulin Ratio 1.3 (0.9-2) Lipase 60 (11-82) U/L Urine Color Yellow Urine Appearance Clear (Clear) Urine pH 5.5 (4.5-7.5) Ur Specific [place] 1.006 (1.000-1.030) Urine Protein Negative (Negative) Urine Glucose (UA) Negative (Negative) Urine Ketones Negative (Negative) Urine Blood Negative (Negative) Urine Nitrite Negative (Negative) Urine Bilirubin Negative (Negative) Urine Urobilinogen Negative (Negative) Ur Leukocyte Esterase Trace H (Negative) Urine WBC (Auto) 0-5 (0-5) /hpf Urine RBC (Auto) 0-2 (0-2) /hpf U Hyaline Cast (Auto) 0-2 (0-2) /lpf U Epithel Cells (Auto) 0-2 (0-2) /hpf Urine Bacteria (Auto) None Seen (None Seen) Urine Comment Administered Medications Acetaminophen (Acetaminophen 500 Mg Tab) 1,000 mg PO BID [facility] Stop: 01/30/25 08:59 Last Admin: 12/31/24 08:59 Dose: 1,000 mg Documented By: lydia Buspirone HCl (Buspirone 15 Mg Tab) 30 mg PO BID [facility] Stop: 01/30/25 08:59 Last Admin: 12/31/24 08:47 Dose: 30 mg Documented By: lydia Fluticasone Furoate (Fluticasone Furoate 200mcg 14 Puffs/Inhaler) 1 puffs INH DAILY [facility] Stop: 01/30/25 08:59 Last Admin: 12/31/24 08:47 Dose: 1 puffs Documented By: lydia Lamotrigine (Lamotrigine 100 Mg Tab) 200 mg PO BID [facility]; Protocol Stop: 01/30/25 08:59 Last Admin: 12/31/24 08:47 Dose: 200 mg Documented By: lydia Levothyroxine Sodium (Levothyroxine Sodium 50 Mcg Tablet) 50 mcg PO DAILYBB [facility] Stop: 01/30/25 06:29 Last Admin: 12/31/24 08:49 Dose: 50 mcg Documented By: lydia Losartan Potassium (Losartan Potassium 50 Mg Tab) 50 mg PO DAILY [facility] Stop: 01/30/25 08:59 Last Admin: 12/31/24 08:48 Dose: 50 mg Documented By: lydia Pantoprazole Sodium (Pantoprazole 40 Mg Tab) 40 mg PO DAILY [facility] Stop: 01/30/25 08:59 Last Admin: 12/31/24 08:48 Dose: 40 mg Documented By: lydia Umeclidinium/Vilanterol (Umeclidinium/Vilanterol 62.5/25mcg 7 Puffs/Inhaler) 1 puffs INH DAILY [facility] Stop: 01/30/25 08:59 Last Admin: 12/31/24 08:47 Dose: 1 puffs Documented By: lydia Valacyclovir HCl (Valacyclovir Hcl 500 Mg Tablet) 500 mg PO BID [facility] Stop: 01/30/25 08:59 Last Admin: 12/31/24 08:48 Dose: 500 mg Documented By: lydia Venlafaxine HCl (Venlafaxine Hcl Xr 75 Mg Capxr) 75 mg PO QAM [facility] Stop: 01/30/25 08:59 Last Admin: 12/31/24 08:48 Dose: 75 mg Documented By: lydia Discontinued Medications Albuterol (Albut/Ipratrop 3mg/0.5mg Neb 3 Ml Vial) 3 ml NEB NOW STA; Protocol Stop: 12/30/24 19:49 Last Admin: 12/30/24 20:02 Dose: 3 ml Documented By: YASMIN Atorvastatin Calcium (Atorvastatin 40 Mg Tab) 40 mg PO NOW STA Stop: 12/31/24 02:59 Last Admin: 12/31/24 04:54 Dose: 40 mg Documented By: OSKARW Sodium Chloride (Nss) 500 mls @ 999 mls/hr IV .Q31M ONE Stop: 12/30/24 20:18 Last Infusion: 12/30/24 20:33 Dose: Infused Documented By: Admin: 12/30/24 20:02 Dose: 999 mls/hr Documented By: YASMIN Acetaminophen (Ofirmev) 1,000 mg in 100 mls @ 400 mls/hr IV NOW STA Stop: 12/30/24 20:02 Last Infusion: 12/30/24 20:33 Dose: Infused Documented By: Admin: 12/30/24 20:02 Dose: 400 mls/hr Documented By: YASMIN Ioversol (Optiray 320 125ml) 120 ml IV ONCE ONE Stop: 12/30/24 21:05 Last Admin: 12/30/24 21:05 Dose: 120 ml Documented By: SELINA Lamotrigine (Lamotrigine 100 Mg Tab) 200 mg PO NOW STA; Protocol Stop: 12/31/24 02:59 Last Admin: 12/31/24 04:53 Dose: 200 mg Documented By: BECKY Montelukast Sodium (Montelukast Sodium 10 Mg Tablet) 10 mg PO NOW ONE Stop: 12/31/24 02:59 Last Admin: 12/31/24 04:53 Dose: 10 mg Documented By: BECKY Risperidone (Risperidone 1 Mg Tablet) 3 mg PO NOW STA Stop: 12/31/24 02:59 Last Admin: 12/31/24 04:53 Dose: 3 mg Documented By: BECKY Valacyclovir HCl (Valacyclovir Hcl 500 Mg Tablet) 500 mg PO NOW ONE Stop: 12/31/24 02:59 Last Admin: 12/31/24 04:54 Dose: 500 mg Documented By: BCEKY Discharge Plan Visit Data Chief Complaint: Referred by Doctor Stated Complaint: GALLBLADDER PROBLEMS, REF BY DOC ED Provider: Joshua Damian ED Midlevel Provider: Didi Campo Discharge Problem: Right upper quadrant abdominal pain, Pericardial effusion, Lower abdominal pain, Wheezing Patient Disposition: Admitted As Inpatient Condition: Fair Discharge Instructions Interventions: ED Discharge Assessment Last Done: 12/31/24 04:08
[2024-12-30 19:33] LABS: Appearance Urine Clear (Clear); Bacteria Urine Automated None Seen (None Seen); Cast Urine Automated 0-2 /lpf (0-2); Epithelial Cell Urine Auto 0-2 /hpf (0-2); Glucose Urine UA Negative (Negative); RBC Urine Automated 0-2 /hpf (0-2); WBC Urine Automated 0-5 /hpf (0-5)
[2024-12-30 19:34] LABS: Hematocrit (blood only) 36.4 % (37.0-47.0); Hemoglobin 12.1 g/dl (12.0-16.0); Immature Granulocytes # (auto) 0.02 K/uL (0.01-0.20); Immature Granulocytes % (auto) 0.4 %; Mean Corpuscular Hemoglobin 34.2 pg (25.0-34.0); Mean Corpuscular Volume 102.8 fL (80.0-100.0); Platelet Count 176 K/uL (130-400); RDW Standard Deviation 46.3 fL (36.4-46.3); Red Blood Count 3.54 M/uL (4.20-5.40); White Blood Count 5.36 K/ul (4.8-10.8)
[2024-12-30 19:52] LABS: Alanine Aminotransferase 18.0 U/L (7-52); Albumin Globulin Ratio 1.3 (0.9-2); Albumin Level 4.5 gm/dl (3.4-5.0); Alkaline Phosphatase 75.0 U/L (34-104); Anion Gap 9.0 (3-11); Bilirubin,Total 0.5 mg/dl (0.2-1.0); Blood Urea Nitrogen 27.0 mg/dl (6-23); Calcium 10.5 mg/dl (8.6-10.3); Carbon Dioxide 28.0 mmol/L (21-32); Chloride 104.0 mmol/L (98-107); Creatinine Clr Calc Pharmacy 39.7 ml/min; Globulin 3.4 gm/dl (2.5-4.0); Glucose 124.0 mg/dl (70-99(Fasting)); Lipase 60.0 U/L (11-82); Potassium 4.3 mmol/L (3.5-5.1); Sodium 141.0 mmol/L (136-145); Total Protein 7.9 gm/dl (6.0-8.3)
[2024-12-30] MEDS: ACETAMINOPHEN 1,000 MG/100 ML VIAL IV STA (20:02)
[2024-12-30] MEDS: ALBUT/IPRATROP 3MG/0.5MG NEB 3 ML VIAL NEB STA (20:02)
[2024-12-30] MEDS: SODIUM CHLORIDE 0.9% 500 ML IV ONE (20:02)
[2024-12-30 20:06] LABS: INR 0.9 (0.9-1.1); Partial Thromboplastin Time 25 Seconds (21-31); Prothrombin Time 10.3 Seconds (9.0-12.0)
[2024-12-30] MEDS: OPTIRAY 320 125ml IV ONE (21:05)
--- NOTE | 2024-12-30 23:01 | XRay Report ---
Exam(s): XR CXR 1 VIEW EXAM: XR Chest, 1 View CLINICAL HISTORY: upper abd pain, wheezing. TECHNIQUE: Frontal view of the chest. COMPARISON: Chest two views dated 06/23/2023 FINDINGS: Lungs: The prominent hilar structures are presumed vascular. Subsegmental infrahilar changes noted bilaterally with less prominent lung expansion. The lungs are otherwise well-aerated. No radiographic evidence for florid CHF. Pleural space: Unremarkable. No pneumothorax. No large pleural effusion. Heart: The cardiac silhouette is stable, accounting for portable technique. Mediastinum: No significant abnormality identified. The trachea is midline. Bones/joints: Unremarkable. No acute fracture. IMPRESSION: Subsegmental infrahilar changes noted bilaterally with less prominent lung expansion. Favor subsegmental atelectasis. The lungs are otherwise well-aerated. No radiographic evidence for florid CHF. No pleural effusion or pneumothorax. Electronically signed by: Rocael Vicente MD 12/30/24 23:00 PM
--- NOTE | 2024-12-30 23:04 | Ultrasound Report ---
Exam(s): US GALLBLADDER EXAM: US Abdomen Limited, Gallbladder CLINICAL HISTORY: RUQ pain. TECHNIQUE: Real-time ultrasound of the right upper quadrant with image documentation. COMPARISON: No relevant prior studies available. FINDINGS: Liver: The liver is hyperechoic. There are simple appearing cysts in the right lobe of the liver with the largest cyst measuring 1.8 x 1.4 x 1. 5 cm. The liver measures 15.8 cm. Gallbladder: The gallbladder is pdoq-tm-nibzxcbbij distended. No cholelithiasis. The gallbladder wall measures 1.3 mm. No pericholecystic fluid. There is a reported negative sonographic Carmona's sign. Common bile duct: The common bile duct measures 1.1 cm in diameter. No stones. No dilation. Pancreas: Visualized segments of the pancreas are unremarkable. Right kidney: The right kidney measures 10.8 cm. There is a simple cysts in the superior pole of the right kidney measuring 2.4 x 2.8 x 2.5 cm. There is a 8 mm cyst in the midpole of the right kidney. Free fluid: No free fluid. IMPRESSION: 1. The gallbladder is bclw-sx-csrngdxizl distended. No cholelithiasis or associated sonographic findings to suggest acute cholecystitis. 2. The common bile duct measures 1.1 cm in diameter. No appreciable choledocholithiasis. No intrahepatic biliary dilatation. Please correlate with bilirubin levels. 3. Incidental hepatic and renal cysts without internal complex or solid components. Electronically signed by: Rocael Vicente MD 12/30/24 23:03 PM
--- NOTE | 2024-12-30 23:11 | CT Scan Report ---
Exam(s): CTA CHEST IV Amt: 120ml opti 320 EXAM: CT Angiography Chest With Intravenous Contrast CLINICAL HISTORY: Evaluate for potential PE. TECHNIQUE: Axial computed tomographic angiography images of the chest with intravenous contrast. CTDI is 24 mGy and DLP is 1079 mGy-cm. Automated exposure control was utilized for the study. A dose lowering technique was utilized adhering to the principles of ALARA. MIP reconstructed images were created and reviewed. COMPARISON: CT chest without contrast dated 10/22/2023 FINDINGS: Pulmonary arteries: Accounting for diffuse respiratory artifact, there is no definite evidence for pulmonary embolism. Aorta: Atherosclerotic calcification involving the aorta. No dissection. No aneurysm. Lungs: Curvilinear presumed atelectasis involving the lung bases, similar to the previous examination. No focal airspace consolidation. Pleural space: Unremarkable. No significant effusion. No pneumothorax. Heart: The cardiac chambers are enlarged and have increased in size from the previous examination. At least moderate coronary artery calcification. Trace pericardial effusion in the superior pericardial recess. Bones/joints: No acute fracture. No dislocation. Soft tissues: Unremarkable. Lymph nodes: Unremarkable. No enlarged lymph nodes. IMPRESSION: 1. Accounting for diffuse respiratory artifact, there is no definite evidence for pulmonary embolism. 2. Curvilinear presumed atelectasis involving the lung bases, similar to the previous examination. No focal airspace consolidation. No pleural effusion or pneumothorax. 3. The cardiac chambers are enlarged and have increased in size from the previous examination. At least moderate coronary artery calcification. Electronically signed by: Rocael Vicente MD 12/30/24 23:11 PM
--- NOTE | 2024-12-30 23:50 | CT Scan Report ---
Exam(s): CT ABDOMEN + PELVIS With Contrast IV Amt: 120ml optiray 320 EXAM: CT Abdomen and Pelvis With Intravenous Contrast CLINICAL HISTORY: abdominal pain, RUQ and lower. TECHNIQUE: Axial computed tomography images of the abdomen and pelvis with intravenous contrast. CTDI is 24 mGy and DLP is 1079 mGy-cm. Automated exposure control was utilized for the study. A dose lowering technique was utilized adhering to the principles of ALARA. CONTRAST: Patient received 120ml optiray 320 of IV contrast COMPARISON: Abdominal ultrasound performed earlier FINDINGS: Lung bases: Unremarkable. No mass. No consolidation. ABDOMEN: Liver: There are multiple cysts noted throughout the liver. The largest is noted in segment 4, measuring 1.3 cm. Many of the cysts are subcentimeter in size and too small to accurately characterize. However, there is no evidence for internal solid enhancing or complex features. Gallbladder and bile ducts: Unremarkable. No calcified stones. No ductal dilation. Pancreas: Unremarkable. No mass. No ductal dilation. Spleen: Unremarkable. No splenomegaly. Adrenals: Unremarkable. No mass. Kidneys and ureters: Multiple cortical cysts noted involving both kidneys. The largest cyst inferiorly on the left measures 4.1 x 3.9 cm. The largest cyst superiorly and medially on the right measures 2.5 x 3.1 cm. No pyelonephritis or hydronephrosis. Stomach and bowel: The stomach is moderately distended with retained oral contents. No gastric mucosal thickening or retrograde filling of the distal esophagus. No evidence for focal high-grade bowel obstruction. No definite asymmetric bowel mucosal abnormality. Moderate stool burden. No diverticulitis. PELVIS: Appendix: The appendix is not clearly delineated. Bladder: Unremarkable. No mass. Reproductive: The uterus is not identified and is presumed surgically absent. ABDOMEN and PELVIS: Intraperitoneal space: Unremarkable. No free air. No significant fluid collection. Bones/joints: Bilateral hip arthroplasties noted. Soft tissues: Unremarkable. Vasculature: Extensive atherosclerotic calcification of the aorta. No dissection or aneurysm. Lymph nodes: Unremarkable. No enlarged lymph nodes. IMPRESSION: 1. The stomach is moderately distended with retained oral contents. No gastric mucosal thickening or retrograde filling of the distal esophagus. This is a presumed incidental normal variant finding. However, please correlate with timeline of oral intake for potential delayed gastric emptying. 2. No evidence for focal high-grade bowel obstruction. No definite asymmetric bowel mucosal abnormality. Moderate stool burden. No diverticulitis. No free intraperitoneal fluid or pneumoperitoneum. Electronically signed by: Rocael Vicente MD 12/30/24 23:49 PM
--- NOTE | 2024-12-31 02:55 | History & Physical Report ---
Date of Service December 31, 2024 Assessment & Plan (1) Pericardial effusion: (2) Right upper quadrant pain: (3) ILD (interstitial lung disease): (4) Chronic kidney disease, stage 3a: Plan Patient is a 74-year-old female with a past medical history of interstitial lung disease/pulmonary fibrosis, OCD, anxiety/depression, bipolar disorder, GERD, HTN/HLD, gastroparesis. Patient presented due to right upper quadrant abdominal pain for several days. Workup in the ED negative for any acute abdominal abnormalities however chest CTA did reveal trace pericardial effusion with dilated heart chambers. Patient is being admitted to have echocardiogram. #pericardial effusionchest CTA noted trace pericardial effusion with dilated heart chambers. EKG showed sinus bradycardia, no ischemic changes. Troponin negative. Echocardiogram ordered Monitor on telemetry #Right upper quadrant painAP CT negative for any acute changes, gallbladder ultrasound did show mild to moderate distention of gallbladder however no cholecystitis or stones present. LFTs WNL, no leukocytosis, afebrile. Given normal laboratories, defer further workup at this time Tylenol as needed and Zofran as needed #CKD stage IIIacreatinine improved from patient's baseline. Avoid nephrotoxic agents #ILD/pulmonary fibrosishistory of histoplasmosis, follows with Dr. Coleman. Continue home inhalers #Mental healthcontinue buspirone, lamotrigine, risperidone, venlafaxine #HTNcontinue ARB #History of gastroparesisnoted on AP CT VTE ppx: SCDs, low risk Dispo: med/tele - anticipate dc home 12/31 after echocardiogram Admission and Anticipated Discharge Date Admission Date: 12/31/24 History of Present Illness Chief Complaint: referred by dr to have kidneys and gallbladder checked Primary Care Provider: Brenda Mc Patient is a 74-year-old female with a past medical history of interstitial lung disease/pulmonary fibrosis, OCD, anxiety/depression, bipolar disorder, GERD, HTN/HLD, gastroparesis. Patient presented due to right upper quadrant abdominal pain for several days. Workup in the ED negative for any acute abdominal abnormalities however chest CTA did reveal trace pericardial effusion with dilated heart chambers. Patient is being admitted to have echocardiogram. Patient seen at bedside with her present. She stated for the past few days she has had constant right upper quadrant abdominal pain that goes under her rib cage and she feels full. She denies any chest pain, shortness of breath, nausea, vomiting, diarrhea, rhinorrhea, cough, congestion, headaches. She was a former smoker however quit 30 years ago. Denies any current alcohol use. She needs her evening medications, ordered on admission. She wishes to be full code however would not want prolonged CPR or to be "a vegetable". Extensively discussed CODE STATUS and goals of care with patient and her at bedside as they have not previously discussed this. Allergies Allergy/AdvReac Type Severity Reaction Status Date / Time codeine AdvReac Intermediate Vomiting Verified 10/17/24 11:55 Home Medications Medication Instructions Recorded Confirmed Type acetaminophen 500 mg tablet 1,000 mg PO BID Pain 04/15/22 10/17/24 History ascorbic acid (vitamin C) 1,000 mg 1,000 mg PO BID 04/15/22 10/17/24 History tablet,extended release (Vitamin C ER) atorvastatin 40 mg tablet (Lipitor) 40 mg PO PM 04/15/22 10/17/24 History lamotrigine 200 mg tablet 200 mg PO BID 04/15/22 10/17/24 History levothyroxine 50 mcg tablet 50 mcg PO QAM 04/15/22 10/17/24 History montelukast 10 mg tablet 10 mg PO QPM 04/15/22 10/17/24 History multivitamin 1 tab PO QAM 04/15/22 10/17/24 History valacyclovir 500 mg tablet 500 mg PO BID 04/15/22 10/17/24 History albuterol sulfate 90 mcg/actuation 2 puffs inhalation 6XD PRN 06/23/23 10/17/24 Rx aerosol inhaler shortness of breath or wheezing #6.7 grams Flutter Valve #1 ea 02/04/24 10/17/24 Rx buspirone 15 mg tablet 30 mg PO BID 09/15/24 10/17/24 History irbesartan 75 mg tablet 150 mg PO DAILY 09/15/24 10/17/24 History omeprazole 20 mg capsule,delayed 20 mg PO DAILY 09/15/24 10/17/24 History release risperidone 3 mg tablet 4 mg PO HS 09/15/24 10/17/24 History venlafaxine 150 mg 75 mg PO QAM 09/15/24 10/17/24 History capsule,extended release 24 hr budesonide 160 mcg-glycopyr 9 2 inh inhalation BID #10.7 grams 11/03/24 Rx mcg-formot 4.8 mcg/actuation HFA inhaler ([employer]) Past Med/Surg History Problem List (Updated 12/31/24 @ 03:17 by Rosy Momin PA-C) Right upper quadrant pain Pericardial effusion Anemia due to chronic kidney disease Vitamin D deficiency Ex-smoker Exertional shortness of breath Bronchiectasis ILD (interstitial lung disease) Metabolic acidosis Chronic kidney disease, stage 3a Left peroneal nerve palsy S/P total left hip arthroplasty Osteoarthritis of left hip Encounter for pre-operative examination Asthma Genital HSV COPD (chronic obstructive pulmonary disease) GERD (gastroesophageal reflux disease) Hypothyroidism Hyperlipidemia Hypertension Anxiety and depression Bipolar disorder Medical History OCD (obsessive compulsive disorder) Surgical History History of esophagogastroduodenoscopy (EGD) Hx of colonoscopy Nausea and vomiting after administration of anesthetic agent History of bilateral knee replacement History of right hip replacement Hx of hysterectomy History of removal of retained hardware History of open reduction and internal fixation (ORIF) procedure Hx of tonsillectomy Family History Other Hx of cardiac disorder Social History (Updated 10/17/24 @ 11:54 by Caryl Medina RN) Smoking Status: Former smoker Tobacco Type: Cigarettes Age Started Using Tobacco: 17; Age Quit Using Tobacco: 49; packs per day: 1; Second Hand Exposure: No; Do You Dip or Chew Tobacco: No; Hx Alcohol Use: No Hx Substance Use: No Preferred Language: Faroese Communication Ability: Effective Visual Impairment: No Limitations Hearing Ability: Normal Belt Builder Required: No Beliefs That Will Affect Care: None Current Living Situation: Spouse current occupational status: retired Feels Safe at Home: Yes Diet: regular Dental Care, Regularly: Yes Physical Activity Frequency: Does not Exercise Seatbelt Use: always Sunscreen Use: Yes Do you think of yourself as: straight/heterosexual Gender Identity: Female Assistive Devices: Glasses and Walker Review of Systems Review of Systems: See HPI Physical Exam Physical Exam: The patient is awake, alert and oriented 3, well developed and well nourished, normocephalic and atraumatic, in no acute distress. Non-toxic appearing. HEENT- EOMI, mucous membranes moist. Hearing grossly intact. Heart-normal S1 and S2. No murmurs, rubs or gallops. Lungs-clear bilaterally, no respiratory distress, no accessory muscle use. Abdomen-normal bowel sounds and soft. No ascites noted. Non-tender. Extremities- no clubbing, cyanosis, or edema. Rheumatologic-normal range of motion. Psychiatric-normal affect. Results & Data Results & Data Vital Signs (Past 12 Hours) Vital Signs Temp Pulse Pulse Resp BP BP Pulse Ox 12/31/24 02:00 52 L 20 156/88 H 97 12/31/24 00:00 47 L 16 136/89 97 12/30/24 23:21 57 L 12/30/24 22:25 55 L 18 147/86 H 97 12/30/24 20:00 57 L 16 145/63 H 98 12/30/24 19:34 57 L 12/30/24 19:33 57 L 16 158/64 H 98 12/30/24 19:19 63 18 153/77 H 100 12/30/24 16:23 36.9 C 64 14 159/85 H 98 O2 Del Method 12/31/24 02:00 Room Air 12/31/24 00:00 Room Air 12/30/24 23:21 12/30/24 22:25 12/30/24 20:00 Room Air 12/30/24 19:34 12/30/24 19:33 Room Air 12/30/24 19:19 Room Air 12/30/24 16:23 Room Air Laboratory Results reviewed CBC, CMP, PT/INR, troponin, lipase, UA Diagnostic Findings reviewed chest CTA, abdomen pelvis CT, gallbladder ultrasound, CXR Medications Administered EDDuoNeb x 1, 500 mL NSS bolus, 1G IV Tylenol ECG Additional Comments: sinus bradycardia, rate 57 QTc 451 Code Status & VTE Plan Code Status full code Supervising Physician Co-Signing Physician Notes Attending addendum: I have physically seen this patient, have supervised the medical residents activities, and agree with the H&P unless as otherwise noted. Assessment and Plan: The patient is a 74-year-old female with a past medical history including interstitial lung disease/pulmonary fibrosis, OCD, anxiety/depression, bipolar disorder, GERD, hypertension, hyperlipidemia, and gastroparesis. She presented with right upper quadrant abdominal pain for several days. Workup in the emergency department included CT scan of abdomen pelvis which showed a moderately distended stomach with retained oral contents. There is no gastric mucosal thickening or retrograde filling of the distal esophagus, indicating that this could be a incidental normal variant finding. CT angiography of the chest was negative for PE, there was atelectasis at the lung bases, similar to previous. The cardiac chambers were thought to be in enlarged and increased in size from the previous examination. There was at least moderate coronary artery calcification. Gallbladder ultrasound showed a mild to moderately distended gallbladder. No c holelithiasis or associated findings to suggest acute cholecystitis. Common bile duct measured 1.1 cm in diameter with no choledocholithiasis noted. Pericardial effusion- Chest CTA noted trace pericardial effusion with dilated heart chambers. EKG showed sinus bradycardia without ischemia Troponin was negative The patient will be admitted to telemetry for serial cardiac enzymes, serial EKG's, cardiac rhythm monitoring and a 2-D echocardiogram with Dopplers. Right upper quadrant pain/GERD- Continue omeprazole/pantoprazole CKD stage IIIa- Creatinine 1.25, was improved compared to her baseline Interstitial lung disease/pulmonary fibrosis- History of histoplasmosis, follows with Dr. Coleman Continue usual home inhalers and montelukast Hypertension- Continue irbesartan Hypothyroidism- Continue levothyroxine Anxiety/depression/bipolar disorder- Continue venlafaxine, risperidone, lamotrigine, and buspirone Hyperlipidemia- Continue atorvastatin Remaining orders and notations as noted PG Care Time/CCT Total # of Minutes Spent Total Time Spent with Patient: Total time spent is greater than 50% in coordination of care (as documented) at patient's floor/unit and/or counseling patient: Coding Level of Care Code 46347 INT INP/OBS CARE 75MIN Diagnoses Pericardial effusion I31.39 Right upper quadrant pain R10.11 ILD (interstitial lung disease) J84.9 Chronic kidney disease, stage 3a N18.31
[2024-12-31] MEDS ORDERED: ONDANSETRON INJ 2 MG/ML 2 ML VIAL IV PRN (04:07)
[2024-12-31] MEDS ORDERED: MELATONIN 3 MG TAB PO PRN (04:07)
[2024-12-31] MEDS ORDERED: DOCUSATE SODIUM 100 MG CAP PO PRN (04:07)
[2024-12-31] MEDS ORDERED: ALBUTEROL HFA 8 GM INHALER INH PRN (04:07)
[2024-12-31] MEDS: MONTELUKAST SODIUM 10 MG TABLET PO ONE (04:53)
[2024-12-31] MEDS: lamoTRIgine 100 MG TAB PO STA (04:53)
[2024-12-31] MEDS: ATORVASTATIN 40 MG TAB PO STA (04:54)
[2024-12-31] MEDS: lamoTRIgine 100 MG TAB PO SCH (08:47)
[2024-12-31] MEDS: UMECLIDINIUM/VILANTEROL 62.5/25MCG 7 PUFFS/INHALER INH SCH (08:47)
[2024-12-31] MEDS: busPIRone 15 MG TAB PO SCH (08:47)
[2024-12-31] MEDS: FLUTICASONE FUROATE 200MCG 14 PUFFS/INHALER INH SCH (08:47)
[2024-12-31] MEDS: LOSARTAN POTASSIUM 50 MG TAB PO SCH (08:48)
[2024-12-31] MEDS: VENLAFAXINE HCL XR 75 MG CAPXR PO SCH (08:48)
[2024-12-31] MEDS: LEVOTHYROXINE SODIUM 50 MCG TABLET PO SCH (08:49)
[2024-12-31] MEDS: ACETAMINOPHEN 500 MG TAB PO SCH (08:59)
[2024-12-31] MEDS ORDERED: NON-FORMULARY MEDICATION (Budesonide-Glycopyr-Formoterol [Breztri Aerosphere] 160-9-4.8 mc INH SCH (09:00)
[2024-12-31 09:24] VITALS: RESP 18
--- NOTE | 2024-12-31 15:31 | Hospitalist Progress Note ---
Date of Service December 31, 2024 Assessment & Plan (1) Pericardial effusion: (2) Right upper quadrant pain: (3) ILD (interstitial lung disease): (4) Chronic kidney disease, stage 3a: Plan Patient is a 74-year-old female with a past medical history of interstitial lung disease/pulmonary fibrosis, OCD, anxiety/depression, bipolar disorder, GERD, HTN/HLD, gastroparesis. Patient presented due to right upper quadrant abdominal pain for several days. Workup in the ED negative for any acute abdominal abnormalities however chest CTA did reveal trace pericardial effusion with dilated heart chambers. Patient is being admitted to have echocardiogram. #pericardial effusionchest CTA noted trace pericardial effusion with dilated heart chambers. EKG showed sinus bradycardia, no ischemic changes. Troponin negative. Echocardiogram ordered Monitor on telemetry - Plan for discharge if echo findings normal and pain stable. #Right upper quadrant pain/Musculoskeletal pain: AP CT negative for any acute changes, gallbladder ultrasound did show mild to moderate distention of gallbladder however no cholecystitis or stones present. LFTs WNL, no leukocytosis, afebrile. Given normal laboratories, defer further workup at this time Tylenol as needed and Zofran as needed #CKD stage IIIacreatinine improved from patient's baseline. Avoid nephrotoxic agents #ILD/pulmonary fibrosishistory of histoplasmosis, follows with Dr. Coleman. Continue home inhalers #Mental healthcontinue buspirone, lamotrigine, risperidone, venlafaxine #HTNcontinue ARB #History of gastroparesisnoted on AP CT VTE ppx: SCDs, low risk Dispo: med/tele - anticipate dc home 12/31 after echocardiogram Admission and Anticipated Discharge Date Admission Date: December 31, 2024 Subjective Here for right upper quadrant abdominal pain for several days. Went to the clinic yesterday because of fatigue. Reports pain has been resolved except on deep palpation. Review of Systems Review of Systems: as per hpi Physical Exam Physical Exam: The patient is awake, alert and oriented 3, well developed and well nourished, normocephalic and atraumatic, in no acute distress. Non-toxic appearing. HEENT- EOMI, mucous membranes moist. Hearing grossly intact. Heart-normal S1 and S2. No murmurs, rubs or gallops. Lungs-clear bilaterally, no respiratory distress, no accessory muscle use. Abdomen-normal bowel sounds and soft. No ascites noted. Slight tenderness on upper quadrant palpation. Extremities- no clubbing, cyanosis, or edema. Rheumatologic-normal range of motion. Psychiatric-normal affect. Results & Data Results & Data Vital Signs (Past 12 Hours) Vital Signs Pulse Pulse Resp BP Pulse Ox Pulse Ox O2 Del Method 12/31/24 15:14 60 12/31/24 09:20 60 18 149/66 H 95 Room Air 12/31/24 07:12 57 L 12/31/24 07:00 54 L 15 146/67 H 100 Room Air 12/31/24 06:00 62 16 142/69 H 98 Room Air 12/31/24 05:19 98 12/31/24 05:00 54 L 16 159/112 H 98 Room Air 12/31/24 05:00 54 L 16 159/112 H 99 Room Air 12/31/24 04:00 70 16 156/75 H 98 Room Air O2 Del Method 12/31/24 15:14 12/31/24 09:20 12/31/24 07:12 12/31/24 07:00 12/31/24 06:00 12/31/24 05:19 Room Air 12/31/24 05:00 12/31/24 05:00 12/31/24 04:00
[2024-12-31 16:11] VITALS: BP 135/76; PULSE 51; O2SAT 94
--- NOTE | 2024-12-31 16:33 | Discharge Summary ---
Date of Service December 31, 2024 Admission HPI Per Admitting Provider Patient is a 74-year-old female with a past medical history of interstitial lung disease/pulmonary fibrosis, OCD, anxiety/depression, bipolar disorder, GERD, HTN/HLD, gastroparesis. Patient presented due to right upper quadrant abdominal pain for several days. Workup in the ED negative for any acute abdominal abnormalities however chest CTA did reveal trace pericardial effusion with dilated heart chambers. Patient is being admitted to have echocardiogram. Patient seen at bedside with her present. She stated for the past few days she has had constant right upper quadrant abdominal pain that goes under her rib cage and she feels full. She denies any chest pain, shortness of breath, nausea, vomiting, diarrhea, rhinorrhea, cough, congestion, headaches. She was a former smoker however quit 30 years ago. Denies any current alcohol use. She needs her evening medications, ordered on admission. She wishes to be full code however would not want prolonged CPR or to be "a vegetable". Extensively discussed CODE STATUS and goals of care with patient and her at bedside as they have not previously discussed this. Admission Exam Per Admitting Provider The patient is awake, alert and oriented 3, well developed and well nourished, normocephalic and atraumatic, in no acute distress. Non-toxic appearing. HEENT- EOMI, mucous membranes moist. Hearing grossly intact. Heart-normal S1 and S2. No murmurs, rubs or gallops. Lungs-clear bilaterally, no respiratory distress, no accessory muscle use. Abdomen-normal bowel sounds and soft. No ascites noted. Non-tender. Extremities- no clubbing, cyanosis, or edema. Rheumatologic-normal range of motion. Psychiatric-normal affect. Principal Diagnosis Right Upper quadrant abdominal pain Discharge Exam The patient is awake, alert and oriented 3, well developed and well nourished, normocephalic and atraumatic, in no acute distress. Non-toxic appearing. HEENT- EOMI, mucous membranes moist. Hearing grossly intact. Heart-normal S1 and S2. No murmurs, rubs or gallops. Lungs-clear bilaterally, no respiratory distress, no accessory muscle use. Abdomen-normal bowel sounds and soft. No ascites noted. Slight tenderness on deep upper quadrant palpation. Extremities- no clubbing, cyanosis, or edema. Rheumatologic-normal range of motion. Psychiatric-normal affect. Discharge Data Allergies Allergy/AdvReac Type Severity Reaction Status Date / Time codeine AdvReac Intermediate Vomiting Verified 10/17/24 11:55 Consultations 12/31/24 01:27 ED Decision to Admit Stat Ordered Studies 12/30/24 19:48 US gallbladder Stat 12/30/24 20:24 CT abd pelvis IV con only Stat CT angio chest PE protocol Stat Hospital Course (1) Pericardial effusion: (2) Right upper quadrant pain: (3) ILD (interstitial lung disease): (4) Chronic kidney disease, stage 3a: Plan Patient is a 74-year-old female with a past medical history of interstitial lung disease/pulmonary fibrosis, OCD, anxiety/depression, bipolar disorder, GERD, HTN/HLD, gastroparesis. Patient presented due to right upper quadrant abdominal pain for several days. Workup in the ED negative for any acute abdominal abnormalities however chest CTA did reveal trace pericardial effusion with dilated heart chambers. Patient is being admitted to have echocardiogram. #pericardial effusionchest CTA noted trace pericardial effusion with dilated heart chambers. EKG showed sinus bradycardia, no ischemic changes. Troponin negative. Echocardiogram findings unchanged from the previous one. Monitored on telemetry #Right upper quadrant pain/Musculoskeletal pain: AP CT negative for any acute changes, gallbladder ultrasound did show mild to moderate distention of gallbladder however no cholecystitis or stones present. LFTs WNL, no leukocytosis, afebrile. Given normal laboratories, deferred further workup. Tylenol as needed and Zofran as needed - Abdominal pain most possibly due to constipation with the CT findings showing stool backed up. Chronic problem will manage now with Miralax. #CKD stage IIIacreatinine improved from patient's baseline. Avoid nephrotoxic agents #ILD/pulmonary fibrosishistory of histoplasmosis, follows with Dr. Coleman. Continue home inhalers #Mental healthcontinue buspirone, lamotrigine, risperidone, venlafaxine #HTNcontinue ARB #History of gastroparesisnoted on AP CT VTE ppx: SCDs, low risk Total Time Total Time Spent Total Time Spent (In Minutes): <30 Discharge Plan Discharge Items Patient Disposition: Home - Self-Care Reason For Visit: PERICARDIAL EFFUSION Discharge Diagnosis: Upper quadrant abdominal pain Condition on Discharge: Fair Activity: Resume your previous activity Non-emergency contact: Primary Care Provider Call non-emergency contact if: your symptoms worsen and your pain is not controlled Follow-up/Referrals: Brenda Mc [Primary Care Provider] - Diet: Regular Addtl Attending Provider Instructions: Abdominal painon review, it appears that your abdominal pain is due to constipation. It fits with the location and the sensations you feel with the pain. Further, your CT scan does show significant amount of stool backed up. Typically it is a chronic problem (typically people have a slow GI tract and are chronically constipated, but only feel it whenever it gets worse)so it is best to view this as an ongoing process to manage, rather than a "one-time backup" to fix. - It is often easiest to work with MiraLAX (polyethylene glycol) as a stool softenerfor perspective, 1 capful (17 g) is a fairly mild stool softener; at the other end of the spectrum roughly 15 capfuls as rapidly as you could swallow it would be like a bowel prep for a colonoscopy. Usually whenever we have someone more chronically constipated they will often settle into a "maintenance regimen" of 35 capfuls a day. - Recognize that at first the MiraLAX will create more liquid stool, not necessarily eliminate what is already in there immediatelywhich means frequently whenever people first started they noticed an increase in more watery diarrhea. Look not only at whether or not the stool is liquid, but how much is coming out (you could assume that there is about 3 feet of stool backed up in your colon right now), how your belly feels, and how often you are having bowel movements. - Once you have gotten ahead of the problem, you will probably settle into 23 doses more days than not, but it will be more important to "dose today based on yesterday's bowel movement"i.e. if you had 3 capfuls yesterday and no bowel movement, then today you might want to take 45; conversely, if you had a lot of watery diarrhea yesterday, today's dose might be 0 capfuls, but then probably tomorrow you would start back with 12. Echocardiogram After we talked about things, the echocardiogram reading finally came back. It is completely unchanged from your previous echocardiogram. As we discussed, a CT scan is not really a test designed to look at your heart very well, so it is not surprising that the echo (a far more accurate test) would not show anything when the CT scan looked like your heart might be somewhat enlarged. This means that your shortness of breath/shortness of breath with exertion almost certainly relates back to your lungs, and not anything cardiac. Pending Studies at Discharge: No Stand-Alone Forms: My [facility], Smoking Cessation Medications and DC Order Prescriptions: Continued Breztri Aerosphere 160-9-4.8 mcg/actuation HFA aerosol inhaler 2 inh inhalation BID Qty: 10.7 11RF (DME) Flutter Valve Device See Rx Instructions .MEDSUPPLY Qty: 1 0RF Rx Instructions: Use it every 6 hours when awake. atorvastatin [Lipitor] 40 mg Tablet 40 mg PO PM lamotrigine 200 mg Tablet 200 mg PO BID valacyclovir 500 mg Tablet 500 mg PO BID acetaminophen 500 mg Tablet 1,000 mg PO BID Patient Comments: 12/31- otc unable to verify levothyroxine 50 mcg Tablet 50 mcg PO QAM montelukast 10 mg Tablet 10 mg PO QPM multivitamin Tablet 1 tab PO QAM Patient Comments: 12/31- otc unable to verify Vitamin C 1,000 mg Tablet Extended Release 1,000 mg PO BID Patient Comments: 12/31- otc unable to verify venlafaxine 150 mg capsule,extended release 24hr 75 mg PO QAM omeprazole 20 mg capsule,delayed release(DR/EC) 20 mg PO DAILY albuterol sulfate 90 mcg/actuation HFA aerosol inhaler 2 puffs INH 6XD PRN (Reason: shortness of breath or wheezing) Qty: 6.7 0RF Patient Comments: 12/31- no fill history unable to verify buspirone 15 mg tablet 30 mg PO BID irbesartan 75 mg tablet 150 mg PO DAILY risperidone 3 mg tablet 0 mg PO HS Patient Comments: 12/31- 3mg filled 12/26 30 day supply; 4 mg dose last filled 12/12 30 day supply Discharge Orders: Discharge Order (Routine); Ordered 12/31/24 Ordered By: Aries Davis Admission Data Admit Date/Time: 12/31/24 03:05 Attending Provider: Aries Davis Admit Provider: Robert Orozco Primary Care Provider: Brenda Mc Other Providers: Robert Orozco Other Interventions: Discharge Summary Assessment (RN) Last Done: 12/31/24 17:56 Supervising Physician Co-Signing Physician Notes I personally examined the patient and verified all regalado points of history and exam, discussed case, and agree with decision making with Dr Landis Feeling okay. Describes abdominal pain is largely right-sided, but often migratory, upper abdomen lower abdomen sometimes suprapubic. Off-and-on throughout the day. No clear inciting or alleviating factors. Describes it as a throb. Endorses some degree of chronic constipation. Vitals noted, in general she is awake and alert pleasant no distress. HEENT normocephalic atraumatic mucous membranes moist. Breathing unlabored no accessory muscle use good effort. Abdomen is soft mildly distended mild diffuse tenderness without guarding rebound or rigidity. CT reviewed and a fairly large amount of stool noted. Echocardiogram unchanged from previous. Abdominal painhighly likely constipation given her symptoms, exam, and history. Home, MiraLAX for chronic maintenance bowel regimen she was also admitted with concern on her cardiac appearance on chest CTbut her echocardiogram was extremely reassuring and essentially unchanged from her one from 2 years ago. Discussed with patient that an echo is a far more accurate test and a CT when it comes to looking at the heart. Safe/stable for home. Resident Activity Tracking Resident Involvement: Resident Care Provided Care Provided: Adult Hospital Medicine
--- NOTE | 2024-12-31 17:17 | XCELERA ---
[id number]
--- NOTE | 2024-12-31 17:29 | Billing Data ---
Date of Service December 31, 2024 Coding Level of Care Code 50780 IN/OBS DISCH 30 MIN/LESS
[2024-12-31] MEDS ORDERED: MONTELUKAST SODIUM 10 MG TABLET PO SCH (21:00)
[2024-12-31] MEDS ORDERED: ATORVASTATIN 40 MG TAB PO SCH (21:00)
--- NOTE | 2025-01-01 21:24 | Electrocardiogram Report ---
Test Reason : Blood Pressure : */* mmHG Vent. Rate : 57 BPM Atrial Rate : 57 BPM P-R Int : 162 ms QRS Dur : 96 ms QT Int : 464 ms P-R-T Axes : 87 -2 50 degrees QTcB Int : 451 ms Sinus bradycardia Low voltage QRS Nonspecific ST and T wave abnormality Abnormal ECG When compared with ECG of 27-Oct-2023 19:28, Premature ventricular complexes are no longer Present Confirmed by Terrell Quiñonez ([id number]) on 01/01/2025 9:23:33 PM Referred By: Brenda Mc Confirmed By: Terrell Quiñonez
== END 2024-12-31 19:09 | disposition home or self-care (01) ==
LOC: ED 16:17 → EDINP 16:17 → SUATTDRO 12-31 03:05 → 2N 12-31 04:08